=== PATIENT | female | born 1945 | race Caucasian/White ===

== ENCOUNTER 2018-07-01 15:09 | Inpatient (IN) | payer MEDICARE ==
[~2018-07-01] VITALS: Ht 157.4 cm; Wt 53.1 kg
--- NOTE | ~2018-07-01 | WRIGHTHP ---
[place], [place] PATIENT HISTORY AND PHYSICAL EXAM NAME: PENELOPE RUIZ UNIT #: [id number] ROOM: 316 DOCTOR: RISHABH BIANCHI MD BIRTHDATE: [birth year] DOS: 07/01/2018 CHIEF COMPLAINT: "You all need to go fuck yourself." HISTORY OF PRESENT ILLNESS: This is a 72-year-old white female who was admitted here from [facility] in [place]. The patient has been increasingly out of control there. She has been both verbally and physically aggressive with staff and other residents. She has been cursing at the patients, her and staff. She has been uncontrollably pacing the hallways, very determined and has been exit seeking. Attempts to redirect have only led to her becoming physically aggressive. She is putting both herself and others at substantial risk of harm and is admitted now to the [facility] to rule out organic factors and attempt to stabilize on medication while engaging in individual and fagan milieu activity. PAST MEDICAL HISTORY: Remarkable for dementia, GERD, CVA, hyperlipidemia, hypertension, irritable bowel and mitral valve prolapse. SOCIAL HISTORY: She is a former drinker of alcohol. She does not smoke cigarettes nor does she use illicit drugs. ALLERGIES: Listed to doxycycline. STRENGTHS: Ambulatory, good verbal skills. WEAKNESSES: Cognitive decline, poor coping skills. MENTAL STATUS EXAMINATION: She is alert and oriented to self. It was very difficult to get her to engage. She continued to pace the halls and continued to yell out obscenities even as I attempted to approach her to ask her if she needed anything and to offer for my assistance. She yelled profanities at me and angrily walked away. DIAGNOSES: Intermittent explosive disorder, Alzheimer's dementia. PLAN: I will go ahead and increase her Depakote sprinkles to 500 mg t.i.d. in an effort to get this mood lability and impulsivity under control. For now, I will start her on Ativan 1 mg t.i.d. and Seroquel 25 mg t.i.d. in an effort to stop the mood lability and prevent harm to self and others. We will monitor for risk, benefit, engage in individual and fagan milieu activity, returning to the least restrictive environment when psychiatrically stable. [place], [place] PATIENT HISTORY AND PHYSICAL EXAM NAME: PENELOPE RUIZ UNIT #: [id number] ROOM: 316 DOCTOR: RISHABH BIANCHI MD BIRTHDATE: [birth year] RISHABH BIANCHI MD CM:HISPHYS:PATIENT HISTORY AND PHYSICAL EXAMINATION [id number] RISHABH BIANCHI MD 07/02/18 1002 interface
--- NOTE | ~2018-07-01 | PR ---
[place], [place] PROGRESS NOTE NAME: PENELOPE RUIZ UNIT #: [id number] ROOM: 316 DOCTOR: RISHABH BIANCHI MD BIRTHDATE: [birth year] DOS: 07/03/2018 CHIEF COMPLAINT: The patient was somnolent. SUMMARY OF THE VISIT: The patient was attempted to be interviewed as she was sitting sleeping in a chair in the dining area. As I approached and attempted to wake her, she did not budge. Nurses report that she had a horrible morning yesterday, which I witnessed as she ran up and down the halls angrily yelling obscenities. Nurses did report that after they gave her PRNs and she had a small nap, she awoke a whole different woman. She was bright, pleasant and engaging. Later in the day some of the medication did catch up to her and she was somnolent. MENTAL STATUS: Limited due to her level of sedation. PLAN: Given the positive improvement, but the side effects of sedation, I will go ahead and begin the pull back on some of the medicine. I will lower Ativan from 1 mg 3 times a day to 0.5 mg 3 times a day. I will lower Seroquel from 25 mg 3 times a day to 12.5 mg 3 times a day. Her vitamin D level is low at 18.1. Hospitalists have already responded to this. We will engage in individual and fagan milieu activity, returning to the least restrictive environment when psychiatrically stable. RISHABH BIANCHI MD CM:PNTRANS [phone] RISHABH BIANCHI MD 07/03/18 1527 interface
--- NOTE | ~2018-07-01 | PN ---
[place], [place] PROGRESS NOTE NAME: PENELOPE RUIZ UNIT #: [id number] ROOM: 311 DOCTOR: RISHABH BIANCHI MD BIRTHDATE: [birth year] DATE: 07/14/18 ADDENDUM: Resident note reviewed. Agree with observations, recommendations, and overall treatment plan. RISHABH BIANCIH MD CM:PNTRANS [phone] RISHABH BIANHCI MD 08/10/18 1433 JOSE STEEL MIS.LLR
--- NOTE | ~2018-07-01 | PR ---
[place], [place] PROGRESS NOTE NAME: PENELOPE RUIZ UNIT #: [id number] ROOM: 311 DOCTOR: RISHABH BIANCHI MD BIRTHDATE: [birth year] DOS: 07/04/2018 INTERVAL NOTE CHIEF COMPLAINT: "Oh there that is, look at that food. It looks good." SUMMARY OF THE VISIT: The patient was interviewed as she was eating her food in the dining area. She was doing it on her own, initially aides tried to help her, but she did not want help and was able to do it on her own. She was bright and pleasant upon approach. There were no profanities and overall her level of agitation seems to have declined from admission. On admission, she was very motor agitated and paced wildly back and forth, yelling obscenities nonstop. Now, she is seated, quietly eating, smiling and verbalizing positive statements. MENTAL STATUS: She is alert and oriented to person, possibly place, although it is doubtful, not to time. Mood seems to be trending towards euthymia. Affect seems more appropriate. There is no camila, hypomania or psychosis. Memory is very poor. PLAN: I will increase Exelon patch from 4.6 to 9.5 mg a day, check a valproic acid level in the a.m. Maintain her other psychotropics as they are and considers titrating downward if need be. Engage in individual and fagan milieu activity, returning to the least restrictive environment when psychiatrically stable. RISHAHB BIANCHI MD CM:PNTRANS [phone] RISHABH BIANCHI MD 08/10/18 1437 interface
--- NOTE | ~2018-07-01 | PR ---
[place], [place] PROGRESS NOTE NAME: PENELOPE RUIZ UNIT #: [id number] ROOM: 311 DOCTOR: RISHABH BIANCHI MD BIRTHDATE: [birth year] DOS: 07/09/2018 INTERVAL NOTE CHIEF COMPLAINT: "Morning." SUMMARY OF THE VISIT: The patient was interviewed as she was curled up on a Mickie chair almost in a position. She pulled the blanket around her tighter as I approached. She voiced no complaint. She tended to be perseverative and echolalic even. Nurses report that she continues to grind her teeth, however, almost worse than before and she does seem to be still unsteady on her feet. Her yelling out and aggressive behaviors, however, have dissipated. MENTAL STATUS: The patient is limited in her conversation. There was no agitation or aggression. There was no mood lability noted. Short-term memory is very problematic. PLAN: I will continue to lower her Depakote Sprinkles bringing the dose down to 250 mg b.i.d. I will order viscous lidocaine to see if this helps with her dental pain. We will engage her in individual and fagan milieu activity, returning to the least restrictive environment when psychiatrically stable. RISHABH BIANCHI MD CM:PNTRANS 0933 RISHABH BIANCHI MD 07/09/18 0950 interface
--- NOTE | ~2018-07-01 | PN ---
[place], [place] PROGRESS NOTE NAME: PENELOPE RUIZ UNIT #: [id number] ROOM: 311 DOCTOR: RISHABH BIANCHI MD BIRTHDATE: [birth year] DATE: 07/05/18 ADDENDUM: Resident note reviewed. Agree with observations, recommendations, and overall treatment plan. RISHABH BIANCHI MD CM:PNTRANS 1416 1435 RISHABH BIANCHI MD 08/10/18 1435 JOSE STEEL MIS.LLR
--- NOTE | ~2018-07-01 | PR ---
[place], [place] PROGRESS NOTE NAME: PENELOPE RUIZ UNIT #: [id number] ROOM: 316 DOCTOR: RISHABH BIANCHI MD BIRTHDATE: [birth year] DOS: 07/06/2018 INTERVAL NOTE CHIEF COMPLAINT: "Oh that is what they say." SUMMARY OF THE VISIT: The patient was interviewed as she was continuing to pace up and down the hallway. She did not even stop to talk to me, but did engage readily in conversation with me as I walked next to her. She voiced no complaint. She does seem to be at times improving and there is less profanities and she is more verbally redirectable. She still is exit seeking, however, and is a constant source of an elopement risk. MENTAL STATUS: She is alert and oriented with time gaps. Mood does seem to be trending towards euthymia. Affect is more appropriate. There is no camila, hypomania or psychosis. Short-term memory is very problematic. PLAN: Her valproic acid level is therapeutic at 91.7, so I will maintain its current dose. I will resume at a slightly higher dose of Seroquel, bringing it from 12.5 mg 3 times a day to 25 mg 3 times a day in an effort to impact positively on her behavior and decrease her impulsivity. We will monitor and support, engage in individual and fagan milieu activity, returning to the least restrictive environment when psychiatrically stable. RISHABH BIANCHI MD CM:PNTRANS [id number] RISHABH BIANCHI MD 07/06/18 1141 interface
--- NOTE | ~2018-07-01 | PR ---
[place], [place] PROGRESS NOTE NAME: PENELOPE RUIZ UNIT #: [id number] ROOM: 311 DOCTOR: RISHABH BIANCHI MD BIRTHDATE: [birth year] DOS: 07/11/2018 SUMMARY OF THE VISIT: The patient was interviewed as she was sitting almost like in her chair. As I approached, she did say good morning. Otherwise, she was fairly quiet. She was more alert, however, than yesterday and more interactive. Her responses tended to be short and simple, vague at times. There was no agitation or aggression, no mood lability noted. Short-term memory remains very problematic. PLAN: I will continue her current psychotropic regimen, continue to engage in individual and fagan milieu activity, returning to the least restrictive environment when psychiatrically stable. RISHABH BIANCHI MD CM:PNTRANS [phone] RISHABH BIANCHI MD 07/11/18 1346 interface
--- NOTE | ~2018-07-01 | PN ---
[place], [place] PROGRESS NOTE NAME: PENELOPE RUIZ UNIT #: [id number] ROOM: 311 DOCTOR: RISHABH BIANCHI MD BIRTHDATE: [birth year] DATE: 07/12/18 ADDENDUM: Resident note reviewed. Agree with observations, recommendations, and overall treatment plan. RISHABH BIANCHI MD CM:PNTRANS 1416 1434 RISHABH BIANCHI MD 08/10/18 1434 JOSE STEEL MIS.LLR
--- NOTE | ~2018-07-01 | PN ---
[place], [place] PROGRESS NOTE NAME: PENELOPE RUIZ UNIT #: [id number] ROOM: 311 DOCTOR: RISHABH BIANCHI MD BIRTHDATE: [birth year] DATE: 07/07/18 ADDENDUM: Resident note reviewed. Agree with observations, recommendations, and overall treatment plan. RISHABH BIANCHI MD CM:PNTRANS 1416 1434 RISHABH BIANCHI MD 08/10/18 1435 JOSE STEEL MIS.LLR
--- NOTE | ~2018-07-01 | PN ---
[place], [place] PROGRESS NOTE NAME: EPNELOPE RUIZ UNIT #: [id number] ROOM: 311 DOCTOR: RISHABH BIANCHI MD BIRTHDATE: [birth year] DATE: 07/13/18 ADDENDUM: Resident note reviewed. Agree with observations, recommendations, and overall treatment plan. RISHABH BIANCHI MD CM:PNTRANS 1416 1433 RISHABH BIANCHI MD 08/10/18 1434 JOSE STEEL MIS.LLR
--- NOTE | ~2018-07-01 | DS ---
[place], [place] DISCHARGE SUMMARY NAME: PENELOPE RUIZ UNIT #: [id number] ROOM: 311 DOCTOR: RISHABH BIANCHI MD BIRTHDATE: [birth year] DOS: 07/15/2018 CHIEF COMPLAINT: "You all need to go f-ck yourself. HISTORY OF PRESENT ILLNESS: This is a 72-year-old white female who [facility] a [facility] [place], [place]. The patient has been increasingly out of control there. She has been both verbally and physically aggressive towards staff and other residents. She has been pacing uncontrollably in the hallways and has been exit seeking. Additionally, she has been yelling out obscenities such as go f-ck yourself repeatedly, disturbing the entire fagan milieu. Attempts to redirect her have only led to her becoming increasingly more physically aggressive. She is putting both herself and other residents at substantial risk of harm. She is now admitted to the [facility] to rule out organic factors to attempt to stabilize on medication and to engage in individual and fagan milieu activity determining the least restrictive environment to which she could be discharged. SUMMARY OF HOSPITAL COURSE: The patient was admitted to the unit where she was initially started on Depakote Sprinkles 500 mg 3 times daily in an effort to control her mood lability. This, however, was not initially beneficial. She was started on Ativan 1 mg t.i.d. and Seroquel 25 mg t.i.d., which initially did seem to impact positively on her behaviors; however, after several days, this did cause her to have excessive somnolence and the doses then had to be held and discontinued. During this period of time, she was stabilized on Exelon patch 4.6 mg a day, was rapidly titrated upward to 13.3 mg a day without any side effects noted. Namenda was also maintained at 10 mg b.i.d. As this had an opportunity to impact positively on her behavior, the need for any other intervention seemed lessened. She did have some periods during the morning when she became a little agitated, so Ativan 0.5 mg b.i.d. early was given with excellent results without the residual sedation or somnolence. With this combination of medications, the patient improved dramatically. She was able to sit and attend groups. She no longer was pacing wildly in the parra. She no longer was yelling out obscenities. She did respond to verbal prompting. As mentioned earlier, there was no sedation or somnolence, no other symptoms or side effects were noted. She had improved sufficiently [facility] to [facility]. MENTAL STATUS AT DISCHARGE: She is alert and oriented to self only. Responses are short, simple and vague. She was pleasant, however, and not agitated. There was no hypomania or camila. There were no overt auditory or visual hallucinations, delusions or paranoia. Short-term memory continued to be poor. DISCHARGE DIAGNOSES: Intermittent explosive disorder and Alzheimer's dementia. DISPOSITION: The [facility]. PLAN: All of her prescriptions have been printed and will be sent with her. At the time of discharge, she was psychiatrically and medically stable. I will be the treating psychiatrist of record upon [facility] to [facility]. [place], [place] DISCHARGE SUMMARY NAME: PENELOPE RUIZ UNIT #: [id number] ROOM: 311 DOCTOR: RISHABH BIANCHI MD BIRTHDATE: [birth year] RISHABH BIANCHI MD CM:YOU [phone] RISHABH BIANCHI MD 07/15/18 1313 interface
--- NOTE | ~2018-07-01 | PR ---
[place], [place] PROGRESS NOTE NAME: PENELOPE RUIZ UNIT #: [id number] ROOM: 311 DOCTOR: RISHABH BIANCHI MD BIRTHDATE: [birth year] DOS: 07/08/2018 CHIEF COMPLAINT: "There that is." SUMMARY OF THE VISIT: The patient was interviewed as she was sitting in a Mickie chair wrapped in a blanket. She did attempt to get up on multiple occasions. Staff later did help her up and instead of walking, the patient rocked back and forth, Weeble wobbling the entire time, seemingly unable to take a step. Nurses report she still has episodes of agitation and became extremely agitated yesterday, wildly pounding on windows and doors. MENTAL STATUS: She is alert and oriented to self only, perhaps select others as staff reports that she does know her . She is not oriented to place or time. Mood still is labile. Affect is still inappropriate. There is a great deal of mood lability. I do not see the presence of psychosis. Short term memory is poor and she processes extremely poor. PLAN: In an effort to attempt to simplify her regimen, she had come to the hospital having been on Seroquel without much benefit. I will discontinue the Seroquel now and lower the Depakote sprinkles to 500 mg b.i.d. Her valproic acid level was on the high side, so I do believe I have wiggle room to lower this to see if we can cause her to be more steady on her feet. I will renew her p.r.n. Ativan should she require intervention. Engage in individual and fagan milieu activity, returning to the least restrictive environment when psychiatrically stable. RISHABH BIANCHI MD CM:PNTRANS [phone] RISHABH BIANCHI MD 07/08/18 1041 interface
--- NOTE | ~2018-07-01 | PR ---
[place], [place] PROGRESS NOTE NAME: PENELOPE RUIZ UNIT #: [id number] ROOM: 311 DOCTOR: RISHABH BIANCHI MD BIRTHDATE: [birth year] DOS: 07/10/2018 CHIEF COMPLAINT: "Morning." SUMMARY OF THE VISIT: The patient was interviewed as she was curled up in a Mickie chair almost in a position. Once again, she did awake with some prompting and did say good morning, but then nodded back off. Nurses report that she has not been as active as she had been previously. On the positive side, she is not yelling obscenities, nor is she exit seeking. On the negative side, she has become somewhat less conversant. MENTAL STATUS: She is alert and oriented to self, unclear place, certainly not time. Mood does seem to be more stable and less labile. There are no auditory or visual hallucinations. No delusions, no paranoia. Short term memory continues to be problematic. PLAN: I will discontinue her Depakote now in order to see if we can decrease some of this residual somnolence. I will renew her straight Ativan; however, and consider adjusting this further. We will check a BMP and a CBC now just to rule out any organic factors and engage in individual and fagan milieu activity, returning then to the least restrictive environment when stable. RISHABH BIANCHI MD CM:PNTRANS [phone] RISHABH BIANCHI MD 07/10/18 1010 interface
[2018-07-01] MEDS ORDERED: NAMZARIC 28 MG1 EACH PO (16:29)
[2018-07-01] MEDS ORDERED: XANAX0.25 MG PO (16:30)
[2018-07-01] MEDS ORDERED: SEROQUEL25 MG PO (16:32)
--- NOTE | 2018-07-01 16:56 | NUR ---
PENELOPE RUIZ a 72 year old F admitted via from the ADMITTING as a voluntary admission BY MARIE. Arrived on unit at 1656. ALLERGIES: DOXYCYCLINE. Vital signs are: 97.2-82-18 123/60. The client signed the following forms with stated understanding: Authorization For The Release of Medical Information, Clothing List, Consent to Voluntary Admission and Hospitalization, Consent and Release Forms/Receipt of Rights, Acknowledgement of Advance Directive Information, Behavioral Health Consent Form, and Informed Consent of Medications. Admitted under the services of Dr. ARIAS DOWDRISHABH. A search was conducted and hazardous articles were removed. Client was oriented to the unit. JOANNE STEVENS
[2018-07-01 16:58] VITALS: BP 123/60
[2018-07-01 17:24] VITALS: BP 123/60
--- NOTE | 2018-07-01 17:29 | NUR ---
DR. NGUYEN NOTIFIED OF NEW ADMISSION. DIAGNOSIS LIST AND MEDICATIONS FOR REVIEW. PATIENT WILL BE UNDER THE CARE OF DR. NGUYEN.
--- NOTE | 2018-07-01 18:45 | NUR ---
PSA completed with /POA.
[2018-07-01 20:00] VITALS: BP 155/70
--- NOTE | 2018-07-01 20:05 | NUR ---
URINE SPECIMEN COLLECTED VIA RANDOM CATCH. URINE CLOUDY YELLOW. URINE OUTPUT OF 50ML. PATIENT INCONTINENT OF BLADDER PRIOR TO OBTAINING SAMPLE. NO COMPLAINTS OF DYSURIA AT THIS TIME
[2018-07-01 20:43] LABS: BILIRUBIN NEGATIVE (NEGATIVE); BLOOD 1+ (NEGATIVE); CLARITY CLOUDY (CLEAR); COLOR YELLOW (YELLOW); GLUCOSE NEGATIVE (NEGATIVE); KETONE NEGATIVE (NEGATIVE); LEUKO ESTERASE 3+ (NEGATIVE); NITRITE NEGATIVE (NEGATIVE); UROBILINOGEN 0.2 E.U./dl (0.2-1.0)
[2018-07-01 20:58] LABS: WBC TNTC wbc/hpf (0-5)
--- NOTE | 2018-07-01 21:55 | NUR ---
PATIENT WITH INCREASED AGITATION AND ANXIETY. PATIENT MEDICATED WITH ATIVAN 1MG PO. MEDICATION WITH EFFECTIVE RESULTS.
--- NOTE | 2018-07-01 23:10 | NUR ---
24 HR chart check completed.
--- NOTE | 2018-07-02 02:33 | NUR ---
DR VALENTIN ON THE UNIT. URINALYSIS RESULTS REVIEWED AND NO NEW ORDERS RECEIVED AT THIS TIME
--- NOTE | 2018-07-02 03:05 | NUR ---
DR VALENTIN ON UNIT TO SEE PATIENT
--- NOTE | 2018-07-02 05:20 | NUR ---
P-ANXIETY, VULGAR LANGUAGE, PACING. PATIENT ALERT WITH CONFUSION. PATIENT WITH SHORT TERM AND GROUP HOME MEMORY DEFICITS. PATIENT WITH NO HALLUCINATIONS OR DELUSIONS. PATIENT WITH NO SUICIDAL OR HOMICIDAL IDEATIONS. PATIENT YELLING OUT AT STAFF, USING VULGAR LANGUAGE, AND DISRUPTIVE AT TIMES. PATIENT AMBULATING AND PACING THE HALLWAY. I-REDIRECTION WITH 1:1 THERAPEUTIC INTERVENTIONS AND PRESENT REALITY. EDUCATE AND ENCOURAGE MEDICATION COMPLIANCE. R-REDIRECTION ATTEMPTS WITH EFFECTIVE RESULTS AND WITH MUCH ENCOURAGEMENT. PATIENT REDIRECTED AWAY FROM DOOR THROUGHOUT SHIFT WHILE AWAKE. PATIENT TOOK HS MEDICATIONS WITH MUCH ENCOURAGEMENT. PATIENT MOOD IS LABILE AND IRRITABLE. PATIENT AMBULATING ON UNIT WITH STEADY GAIT AND WITH NO ASSISTIVE DEVICE R-CONTINUE TO ENCOURAGE MEDICATION COMPLIANCE, CONTINUE TO PRESENT REALITY, ENCOURAGE GROUP THERAPY WHILE AWAKE
--- NOTE | 2018-07-02 05:42 | NUR ---
PATIENT SLEPT >7 HOURS THROUGHOUT SHIFT UNINTERRUPTED. Q 15 MINUTE CHECKS MAINTAINED
[2018-07-02 07:33] LABS: BASO % 0.5 % (0.0-1.0); EOS # 0.2 10*3/uL (0.0-0.4); EOS % 2.9 % (1.0-4.0); HEMATOCRIT 43.3 % (37.0-47.0); HEMOGLOBIN 13.7 g/dl (12.0-16.0); LYMPH # 1.4 10*3/uL (1.3-4.4); LYMPH % 20.8 % (27.0-41.0); MEAN CELL VOLUME 90.2 fl (81.0-99.0); MEAN CORPUSCULAR HGB 28.5 pg (27.0-31.0); MEAN CORPUSCULAR HGB CONC 31.6 g/dl (33.0-37.0); MEAN PLATELET VOLUME 10.2 fl (9.6-12.3); MONO # 0.5 10*3/uL (0.1-1.0); MONO % 6.9 % (3.0-9.0); NEUT # 4.6 10*3/uL (2.3-7.9); NEUT % 68.6 % (47.0-73.0); PLATELET COUNT AUTOMATED 243 10*3/uL (130-400); RED CELL DISTRI WIDTH 13.8 % (0-14.5); WHITE BLOOD COUNT 6.6 10*3/uL (4.8-10.8)
--- NOTE | 2018-07-02 07:45 | NUR ---
PT AWAKE, ALERT, PACING HALLWAYS AT A FAST PACE, YELLING VULGARITIES AT PEERS AND STAFF SUCH "FUCK YOU, YOU CRAZY BITCH". THIS NURSE ATTEMPTED TO REDIRECT PT TO THIS SIDE OF THE RED LINE. PT GRITTED TEETH AT THIS NURSE AND SCREAMED AT THE TIME OF HER LUNGS "FUCK IT!!" PT THEN AMBULATED BACK DOWN TO THE OTHER END OF THE HALLWAY MUTTERING VULGARITIES SHE WENT.
[2018-07-02 07:53] VITALS: BP 137/70
--- NOTE | 2018-07-02 07:58 | NUR ---
PT PACING HALLWAY AT THIS TIME. TELLING STAFF AND OTHER PTS "FUCK YOU, YOU CRAZY FUCKING BITCH." UNABLE TO DE-ESCALATE. DISTRACTION TECHNIQUES AND REDIRECTION INEFFECTIVE. PT GIVEN SPACE TO CALM SELF. WILL CONTINUE TO MONITOR. ELOPEMENT/WANDER PRECAUTIONS MAINTAINED.
[2018-07-02 07:59] LABS: ALBUMIN 3.4 gm/dl (3.1-4.5); ALKALINE PHOSPHATASE 80 U/L (45-117); BUN 14 mg/dl (7-24); CHLORIDE 105 mmol/L (98-107); CHOLESTEROL 230 mg/dL (<200); CREATININE 0.74 mg/dL (0.55-1.02); HDL CHOLESTEROL 80 mg/dl (40-60); LDL CHOLESTEROL 137 mg/dL (9-159); POTASSIUM 4.3 mmol/L (3.5-5.1); SGOT/AST 9 IU/L (3-35); SGPT/ALT 20 U/L (12-78); SODIUM 141 mmol/L (136-145); TOTAL PROTEIN 7.1 gm/dL (6.4-8.2); TRIGLYCERIDES 65 mg/dl (<150); VLDL CHOLESTEROL 13 mg/dL (6-40)
--- NOTE | 2018-07-02 08:01 | NUR ---
PT WALKED BY NURSES STATION YELLING "THIS IS BULLSHIT, FUCKING BULLSHIT." STAFF TO CONTINUE TO MONITOR MOOD AND BAHVIOR.
--- NOTE | 2018-07-02 08:08 | NUR ---
ATTEMPTED TO ADMINISTER MORNING DOSE OF DEPAKOTE WELL PRN ATIVAN 1MG PO FOR INCREASED ANXIETY AND AGITATION PT CONTINUES TO PACE THE HALLWAY, ANGRILY YELLING, SCREAMING AND CURSING AT STAFF AND PEERS. PT REFUSED TO TAKE MEDICATION PO DESPITE MULTIPLE ATTEMPTS BY THIS RN AND SECOND RN. PT STATES "I'M NOT DOING THAT YOU GODDAMN STUPID BITCH". ATTEMPTED TO DIRECT PT INTO QUIET ROOM WITH LIGHTS DIMMED FOR DE-STIMULATION. PROVIDED WITH BREAKFAST TRAY AND CHOCOLATE MILK PER PT'S PREFERENCES. PT REFUSED TO EAT OR DRINK AGAIN STATES "I'M NOT DOING THAT YOU STUPID BITCH". ON UNIT AND AWARE OF BEHAVIORS.
--- NOTE | 2018-07-02 08:20 | NUR ---
BEHAVIORS CONTINUE, PT CONTINUES TO CURSE AT STAFF AND PEERS. PT THREW CHOCOLATE MILK IN QUIET ROOM. ALL ATTEMPTS TO REDIRECT PT HAVE BEEN INEFFECTIVE. THIS NURSE ATTEMPTED TO ENCOURAGE PT TO SIT IN QUIET ROOM AND EAT BREAKFAST, PT BECAME ANGRY AND YELLED "I'M NOT DOING THAT YOU STUPID PIECE OF BIRD SHIT". PT THEN BEGUN STRIKING OUT AT STAFF. PT WAS GIVEN PRN ATIVAN 1MG IM AT THIS TIME AND PLACED IN GERICHAIR FOR SAFETY PT CONTINUES TO PACE HALLWAYS AT AN EXTREMELY FAST RATE. WILL MONITOR FOR MEDICATION EFFECTIVENESS.
[2018-07-02 09:02] LABS: VITAMIN D, 25-HYDROXY 18.1 ng/mL (30-100)
--- NOTE | 2018-07-02 10:40 | NUR ---
ATIVAN HAS BEEN EFFECTIVE FOR CALMING PT. PT SLEPT FOR APPROXIMATELY 20 MINUTES, PT IS NOW AWARE AND ALERT, LOOKING OUT THE WINDOW IN QUIET ROOM. RESPS EASY AND EVEN ON ROOM AIR. Q15 MIN MONITORING CONTINUES.
--- NOTE | 2018-07-02 11:21 | NUR ---
RECIEVED PHONE CALL FROM PT'S HARPREET WHO CORRECTLY IDENTIFIED PASSWORD "[phone]". UPDATE PROVIDED. STATES HE WILL VISIT THIS EVENING.
--- NOTE | 2018-07-02 11:37 | NUR ---
CALL RECIEVED FROM PT'S SON SARA WHO CORRECTLY IDENTIFIED PASSWORD "[phone]". UPDATE PROVIDED. STATES HE WILL COME IN TO VISIT AT 1230.
--- NOTE | 2018-07-02 12:20 | NUR ---
AM GROUP/EXERCISE/ART/COPING PT UNABLE TO ATTEND GROUP DUE TO INNAPRORIATE BEHAVIORS (CURSING AT STAFF). PT WILL BE ENCOURAGED TO ATTEND AND PARTICIPATE IN GROUP WHEN MORE APPROPRIATE.
--- NOTE | 2018-07-02 14:45 | NUR ---
P- LABILE MOOD AND AFFECT. PT RANGES FROM ANGRY/IRRITABLE TO PLEASANT AND SMILING. MEDICATION NONCOMPLIANT. CONFUSION. PACING/WANDERING. I- ORIENTATION, MOOD AND BEHAVIOR ASSESSED. REORIENTATION, REDIRECTION AND 1:1 PROVIDED NEEDED. ASSESSED FOR SI/HI, INTENT OR PLAN. ASSESSED PT FOR S/S HALLUCINATIONS, PARANOIA AND DELUSIONS. MEDICATIONS ADMINISTERED PER PHYSICIAN'S ORDERS. ENCOURAGED PT TO ATTEND AND PARTICIPATE IN [place] [facility] GROUPS AND ACTIVITIES. ASSISTANCE WITH ADL CARE PROVIDED NEEDED. R- PT IS ALERT AND ORIENTED TO SELF ONLY, GROSSLY CONFUSED IN ALL OTHER AREAS. ST/LT MEMORY DEFICITS NOTED. RESPS EASY AND EVEN ON ROOM AIR. PT DENIES SI/HI, INTENT OR PLAN. PT DENIES HALLUCINATIONS, NO RESPONSE TO INTERNAL STIMULI NOTED. NO PARANOIA/DELUSIONS NOTED. PT REFUSED MORNING MEDICATIONS, TOOK 1PM ROUTINE ORAL MEDICATIONS WITHOUT DIFFICULTY. FOLLOWING ADMINISTRATION OF PRN IM ATIVAN THIS AM PT'S MOOD HAS DRASTICALLY IMPROVED, SINCE LUNCH PT HAS BEEN PLEASANT, SMILING AND COOPERATIVE. HAD A PLEASANT VISIT WITH SON FOR AFTERNOON VISITATION. NO FURTHER VULGAR LANGUAGE OR THREATS THIS AFTERNOON. PT RESTING QUIETLY IN SOFA CHAIR AT THIS TIME WITH EYES CLOSED. P- PLAN TO CONTINUE CURRENT TREATMENT, CONTINUE TO MONITOR MOOD AND BEHAVIORS, PROVIDE APPROPRIATE REORIENTATION, REDIRECTION AND 1:1 PROVIDED NEEDED. CONTINUE TO ENCOURAGE MEDICATION COMPLIANCE WELL GROUP ATTENDANCE AND PARTICIPATION.
--- NOTE | 2018-07-02 15:05 | NUR ---
ON UNIT TO SEE PT AT THIS TIME, UPDATE GIVEN.
--- NOTE | 2018-07-02 15:08 | NUR ---
ON UNIT TO SEE PT AT THIS TIME.
--- NOTE | 2018-07-02 17:37 | NUR ---
PT'S AND DAUGHTER ON UNIT FOR VISITATION, FULL UPDATE GIVEN. ALL QUESTIONS ANSWERED.
[2018-07-02 19:09] VITALS: BP 119/54
--- NOTE | 2018-07-03 04:58 | NUR ---
ALERT TO PERSON WITH CONFUSION NOTED. MEMORY DEFICITS NTOED. PACING HALLWAY. NO HALLUCIANTIONS OR DELUSIONS NOTED. PT ATTEMPTED TO ENTER OTHER PT ROOMS AND WAS REDIRECTED. PT YELLING AT STAFF "OH SHUT UP YOU GOD DAMNED ASSHOLE. YOU MOTHER FUCKING PUSSY" WHEN BEING REDIRECTED. MEDICATION COMPLIANT WITHOUT DIFFICULTY. UNABLE TO PROVIDE MEDICATION EDUCATION. Q15 MINUTE SAFETY CHECKS MAINTAINED. PT SLEPT APPROXIMATELY 7 HOURS THIS SHIFT. SEE [facility] FLOWSHEET FOR SPECIFIC MONITORING.
--- NOTE | 2018-07-03 05:30 | NUR ---
24 HR chart check completed.
[2018-07-03 07:47] VITALS: BP 126/69
--- NOTE | 2018-07-03 07:49 | NUR ---
ON UNIT TO SEE PT AT THIS TIME.
--- NOTE | 2018-07-03 08:17 | NUR ---
ON UNIT TO SEE PT AT THIS TIME, UPDATE GIVEN.
--- NOTE | 2018-07-03 09:18 | NUR ---
PT REFUSED ALL PO MEDS THIS DESPITE MULTIPLE ATTEMPTS BY THIS RN AND 2ND RN. PT STATES "I'M NOT DOING THAT" AND HAS BEGUN TO GET AGITATED STAFF ATTEMPTS TO ENCOURAGE PT TO TAKE MEDICATIONS. PT PACING HALLWAY AT THIS TIME.
--- NOTE | 2018-07-03 16:41 | NUR ---
PM GROUP/BIRDHOUSES/LEISURE SKILLS PT SLEEPING FIRST HALF HOUR OF GROUP, BUT THEN WOKE AND BEGAN PACING HALLS. PT WOULD COME IN GROUP EVERY SO OFTEN TO SAY HI AND WOULD LEAVE TO WALK HALLS AGAIN. PT NOTICEABLY GRINDING TEETH OFTEN. PT ALSO CONFUSED STATING THIS OUT OF NOWHERE LIKE "ARE THEY HERE YET, THERE ARE 57 OF THEM" PT WILL CONTINUE TO BE ENCOURAGED TO ATTEND AND PARTICIPATE IN FUTURE GROUP SESSIONS TO BEST OF PT ABILITY.
--- NOTE | 2018-07-03 18:05 | NUR ---
P- LABILE MOOD AND AFFECT. PT RANGES FROM ANGRY/IRRITABLE TO PLEASANT AND SMILING. MEDICATION NONCOMPLIANT. CONFUSION. PACING/WANDERING. I- ORIENTATION, MOOD AND BEHAVIOR ASSESSED. REORIENTATION, REDIRECTION AND 1:1 PROVIDED NEEDED. ASSESSED FOR SI/HI, INTENT OR PLAN. ASSESSED PT FOR S/S HALLUCINATIONS, PARANOIA AND DELUSIONS. MEDICATIONS ADMINISTERED PER PHYSICIAN'S ORDERS. ENCOURAGED PT TO ATTEND AND PARTICIPATE IN [place] GROUPS AND ACTIVITIES. ASSISTANCE WITH ADL CARE AND INCONTINENCE CARE PROVIDED NEEDED. R- PT IS ALERT AND ORIENTED TO SELF ONLY, GROSSLY CONFUSED IN ALL OTHER AREAS. ST/LT MEMORY DEFICITS NOTED. RESPS EASY AND EVEN ON ROOM AIR. PT DENIES SI/HI, INTENT OR PLAN. PT DENIES HALLUCINATIONS, NO RESPONSE TO INTERNAL STIMULI NOTED. NO PARANOIA/DELUSIONS NOTED. PT AM MEDICATIONS DESPITE MULTIPLE ATTEMPTS BY THIS NURSE AND 2ND RN. PT TOOK AFTERNOON DOSES OF SEROQUEL AND ATIVAN WITH IMPROVEMENT IN OVERALL MOOD NOTED. P- PLAN TO CONTINUE CURRENT TREATMENT, CONTINUE TO MONITOR MOOD AND BEHAVIORS, PROVIDE APPROPRIATE REORIENTATION, REDIRECTION AND 1:1 PROVIDED NEEDED. CONTINUE TO ENCOURAGE MEDICATION COMPLIANCE WELL GROUP ATTENDANCE AND PARTICIPATION.
--- NOTE | 2018-07-03 18:15 | NUR ---
SHIFT CHART CHECK COMPLETED.
[2018-07-03 19:17] VITALS: BP 144/82
--- NOTE | 2018-07-03 23:29 | NUR ---
OFfered pt support and encouragement including with eating and pt was redirectable with not walking close to the exit while engaging in pacing.
--- NOTE | 2018-07-04 01:48 | NUR ---
24 HR chart check completed.
--- NOTE | 2018-07-04 05:27 | NUR ---
ALERT TO PERSON WITH CONFUSION NOTED. MEMORY DEFICITS NOTED. PACING HALLWAY. NO HALLUCIANTIONS OR DELUSIONS NOTED. MEDICATION COMPLIANT WITHOUT DIFFICULTY. UNABLE TO PROVIDE MEDICATION EDUCATION. Q15 MINUTE SAFETY CHECKS MAINTAINED. PT SLEPT APPROXIMATELY 7 HOURS THIS SHIFT. SEE [facility] FLOWSHEET FOR SPECIFIC MONITORING.
--- NOTE | 2018-07-04 07:45 | NUR ---
DR. ZAMARRIPA ON FLOOR TO ASSESS PATIENT.
--- NOTE | 2018-07-04 07:47 | NUR ---
PHYSICAL THERAPY Nursing screen received. PT orders also received. Thank you. Brenda Frey,PT
--- NOTE | 2018-07-04 07:57 | NUR ---
Nurses screen received along with occupational therapy referral, Thank you, Oxana Nuñez OTR/L
[2018-07-04 08:11] VITALS: BP 114/56
--- NOTE | 2018-07-04 08:30 | NUR ---
Treatment Plan meeting with Dr. Carmichael RN, AT, SW and Marine Fuel Dock Attendant. Plan for discharge next week. Pt. current resident at [facility]. Will reach out to [facility] today to discuss discharge Planning.
--- NOTE | 2018-07-04 10:52 | NUR ---
PHYSICAL THERAPY PAtient is 100 % (I) with functional mobility, no PT needs. PAtient is continually pacing halls with no balance difficulties. D/c PT after evaluation. Thank you for this referral. Brenda Frey,PT
--- NOTE | 2018-07-04 11:06 | NUR ---
Occupational Therapy evaluation attempted which resulted in screen. Patient independently ambulatory in hallways with brisk walk. Patient appears independent with ADLs. Will D/C OT orders. Thank you, Oxana padilla OTR/L
--- NOTE | 2018-07-04 11:23 | NUR ---
Shift chart check completed.
--- NOTE | 2018-07-04 11:58 | NUR ---
AM GROUP/PARACHUTE/WORDSEARCH PT DID NOT ATTEND BUT PACED UP AND DOWN HALLS AND WOULD ENTIRE ACTIVITY ROOM EVERY ONCE IN A WHILE AND WALK RIGHT BACK OUT. PT WAS ENCOURAGED TO ATTEND AND PARTICIPATE BUT DID NOT WANT TO. PT WILL CONTINUE TO BE ENCOURAGED TO ATTEND AND PARTICIPATE IN FUTURE GROUP SESSIONS.
--- NOTE | 2018-07-04 12:31 | NUR ---
PATIENT REFUSING MEDICATIONS. WAS ABLE TO GET TO EAT A COUPLE BITES CRUSHED IN APPLESAUCE. TRIED DIFFERENT METHODS TO GET PATIENT TO GET MEDICATIONS IN. REFUSING TO TAKE MEDICATIONS.
--- NOTE | 2018-07-04 12:43 | NUR ---
P: PATIENT WAS PLEASANTLY CONFUSED THIS MORNING, ALERT TO PERSON ONLY. PACING UP AND DOWN THE LAFLEUR ALL MORNING. REFUSING TO SIT DOWN TO EAT AND REFUSING TO ATTEND GROUP. AROUND THIS TIME PATIENT BEGAN TO GET INCREASINGLY AGITATED AND AGGRESSIVE. CONTINUES TO PACE. BECAME AGITATED ONCE ANOTHER PATIENT WAS YELLING OUT. PATIENT YELLING AT STAFF "SHUT THE FUCK UP YOU COCKSUCKER. GET HER TO SHUT THE HELL UP. GET THE HELL OUT OF MY FUCKING WAY. DONT YOU DARE MAKE ME MAD." PATIENT AGGRESSIVE TOWARDS STAFF AND GESTURING WITH A FIST. I: 1:1 WITH PATIENT WITH EMOTIONAL SUPPORT PROVIDED. ATTEMPTED TO GET PATIENT TO MOVE INTO A QUIETER ENVIORNMENT WITH LOWER STIMULI. TRIED TO EXPLAIN TO PATIENT THAT EVERYONE IS HERE FOR A DIFFERENT REASON AND THAT PATIENT CAN NOT HELP IT. OFFERED PATIENT HER MEDICATIONS THAT SHE HAS REFUSED ALL MORNING. TRIED TO GET PATIENT TO EAT HER LUNCH, OFFERED MANY DIFFERENT DIVERSIONAL ACTIVITIES. REORIENT PATIENT WHEN NECESSARY. R: PATIENT REFUSED TO EAT, TAKE HER MEDICATIOINS, DO ANY DIVERSIONA ACTIVITIES, AND REFUSED TO MOVE INTO A QUIETER ENVIORMENT OR LOWER STIMULI ROOM. PATIENT CONTINUED TO CURSE AND YELL AT STAFF, GESTURING FISTS AND CONTINUED TO PACE UP AND DOWN THE HALLS. PATIENT CAME TO VISIT PATIENT, ONCE HE CAME ONTO THE UNIT SHE CALMED DOWN IMMEDIATELY. HER AND THE PATIENT WENT INTO A QUIET ROOM WITH HER LUNCH. PATIENT IS NOW SITTING DOWN WITH HER , TOOK HER MEDICATIONS, AND IS EATING HER LUNCH. PATIENTS MOOD CHANGED TO MORE PLEASANTLY CONFUSED. SMILING AND LAUGHING WITH HER . P: CONTINUE TO ENCOURAGE PATIENT TO BE COMPLIANT WITH HER MEDICATIONS AND EDUCATE ON EACH MEDICATION AND THE IMPORTANCE OF TAKING HER MEDS. ENCOURAGE TO PARTICIPATE IN GROUP FOR EMOTIONAL SUPPORT. ENCOURAGE TO BE EATING HER MEALS AND DRINKING PLEANTY OF FLUIDS. TRY TO ENGAGE PATIENT IN CONVERSATION WITH STAFF AND PEERS. OFFER DIVERSIONAL ACTIVITIES AND LOW STIMULI ENVIRONMENTS. REORIENT PATIENT WHEN NECESSARY. OFFER PATIENT CALL HER WHEN SHE BECOMES INCREASINGLY AGITATED AND ANXIOUS. Q15 MINUTE CHECKS MAINTAINED FOR SAFETY. ELOPEMENT PRECAUTIONS IN PLACE.
--- NOTE | 2018-07-04 15:08 | NUR ---
Spoke to Cynthia at [facility] regarding inpatient mental health authorization. Pending auth # [id number]. Awaiting return call from Cynthia as all dementia patients have to be passed through the supervisor [employer].
--- NOTE | 2018-07-04 15:55 | NUR ---
PM GROUP/LEISURE SKILLS PT CHOSE NOT TO ATTEND, BUT DID PACE HALLS ENTIRE GROUP. PT WILL CONTINUE TO BE ENCOURAGED TO ATTEND AND PARTICIPATE TO BEST OF ABILITY IN FUTURE GROUP SESSIONS.
[2018-07-04 19:57] VITALS: BP 122/75
--- NOTE | 2018-07-04 23:23 | NUR ---
24 HR chart check completed.
--- NOTE | 2018-07-05 00:48 | NUR ---
PATIENT ALERT WITH CONFUSION. PATIENT WITH SHORT TERM AND SKILLED NURSING MEMORY DEFICITS. PATIENT WITH NO RESPIRATORY DISTRESS. PATIENT MOOD IS LABILE AND IRRITABLE AT TIMES. PATIENT AMBULATORY ON UNIT WITH STEADY GAIT. PATIENT WITH COMPLIANT WITH MEDICATIONS WITH MAXIMUM ENCOURAGEMENT. PATIENT WITH VULGAR LANGUAGE AT TIMES. REDIRECTION WITH PATIENT EFFECTIVE FOR SHORT PERIODS OF TIME DUE TO COGNITION. PATIENT PACING HALLWAY AT HS AND WITH ELOPEMENT AND WANDERING PRECAUTIONS. PATIENT WITH NO HALLUCINATIONS OR DELUSIONS. PATIENT WITH NO SUICIDAL OR HOMICIDAL IDEATIONS. SEE [facility] FLOW SHEET FOR SPECIFIC MONITORING
--- NOTE | 2018-07-05 06:05 | NUR ---
SLEEP NOTE PT SLEPT >7 HOURS
--- NOTE | 2018-07-05 07:40 | NUR ---
DR. ZAMARRIPA ON FLOOR TO ASSESS PATIENT.
[2018-07-05 07:49] VITALS: BP 120/69
--- NOTE | 2018-07-05 08:15 | NUR ---
Treatment Plan meeting with Dr. Carmichael, RN, AT, SW and Band Aid Machine Operator. Plan for discharge Next week. Pt. LTC at [facility] and will return at discharge.
--- NOTE | 2018-07-05 11:51 | NUR ---
AM GROUP/EXERCISE AND STRESS REDUCTION PT DID NOT ATTEND MORNING GROUP THERAPY. PT WAS PACING LAFLEUR CONTIUALLY AND COULD NOT BE ENCOURAGED TO ATTEND.
--- NOTE | 2018-07-05 12:31 | NUR ---
P: PATIENT ALERT AND ONLY ORIENTED TO PERSON ONLY. PACING THE LAFLEUR. LABILE MOOD, PATIENT BECOMES REAL EUTHYMIC THEN BECOMES INCREASINGLY AGITATED REPEATEDLY. WHEN IRRITATED PT IS CURSING AT STAFF. REFUSING TO SIT DOWN FOR MEALS OR GROUP. REFUSED BREAKFAST AND WAS ABLE TO GET PATIENT TO EAT A HALF OF A GRILLED CHEESE SANDWICH WHILE PACING FOR LUNCH. NONCOMPLIANT WITH MEDICATIONS, MUCH ENCOURAGEMENT AND ATTEMPTS WERE NEEDED TO GET PATIENT TO TAKE MEDICATIONS. REFUSING TO ATTEND GROUP FOR SOCIALIZATION AND EMOTIONAL SUPPORT. ELOPEMENT RISK, ATTEMPTING TO OPEN DOORS. I: REORIENT PATIENT WHEN CONFUSION IS NOTED. ENCOURAGE PATIENT TO SIT IN DINING ROOM WITH PEERS FOR MEALS, GROUP, AND TO RELAX FEET FROM PACING. OFFER PATIENT DIVERSIONAL TECHNIQUES AND LOW STIMULI ENVIRONMENT. WHEN PATIENT IS IRRITABLE, REDIRECTION AND ADDRESSING THE BEHAVIOR IS INEFFECTIVE. 1:1 INTERACTION FOR EMOTIONAL SUPPORT AND SOCIALIZATION. GIVE MEDICATIONS ON TIME PRESCRIBED AND EDUCATION. R: PATIENT CONTINUES TO PACE THE LAFLEUR. ATTEMPTING TO OPEN DOOR AND EXIT SEEK. REFUSING MEALS, GROUP, SIT, DIVERSIONAL ACTIVITIES, LOW STIMULI ENVIRONMENTS. WHEN IRRITABLE AND TRY TO REDIRECT AND ADDRESS BEHAVIOR, PATIENT CURSES AND YELLS AT STAFF. NO AGGRESSION NOTED. PATIENT DOES NOT SIT DOWN WITH 1:1 INTERACTION, STAFF WALKS WITH PATIENT AND ENGAGES IN CONVERSATION WITH PATIENT. REFUSING TO TAKE MEDICATIONS, MUCH ENCOURAGEMENT AND DIFFERENT ATTEMPTS NEEDED. P: CONTINUE TO ENCOURAGE PATIENT TO BE MEDICATION COMPLIANT WITH EDUCATION PROVIDED. ENCOURAGE TO ATTEND GROUP FOR SOCIALIZATION AND EMOTIONAL SUPPORT. 1:1 INTERACTION WHEN NECESSARY. ADDRESS INAPPROPRIATE BEHAVIORS. Q15 MINUTE CHECKS MAINTAINED FOR SAFETY. ELOPEMENT PRECAUTIONS IN PLACE.
--- NOTE | 2018-07-05 15:24 | NUR ---
Shift chart check completed.
--- NOTE | 2018-07-05 15:50 | NUR ---
PM GROUP/LEISURE ACTIVITIES PT DID NOT ATTEND AFTERNOON GROUP THERAPY. PT CONTINUALLY PACES HALLS. PT COULD NOT BE ENCOURAGED TO ATTEND
[2018-07-05 20:00] VITALS: BP 135/55
--- NOTE | 2018-07-06 03:33 | NUR ---
24 HR chart check completed.
--- NOTE | 2018-07-06 06:19 | NUR ---
PATIENT SLEPT >7 HOURS THROUGHOUT SHIFT UNINTERRUPTED. Q 15 MINUTE CHECKS MAINTAINED
[2018-07-06 07:35] VITALS: BP 128/67
--- NOTE | 2018-07-06 08:15 | NUR ---
Treatment Plan meeting with Dr. Carmichael, RN, AT, SW and Sewing Machine Repairer. Plan for discharge Next week. Pt. is LTC at [facility] and will return at discharge.
--- NOTE | 2018-07-06 09:48 | NUR ---
DR. AGUILAR ON UNIT TO ASSESS PATIENT.
--- NOTE | 2018-07-06 11:27 | NUR ---
Clinical Updates faxed to [facility] attn: Nadia.
--- NOTE | 2018-07-06 11:57 | NUR ---
AM GROUP/EXERCISE AND ART PT DID NOT ATTEND GROUP THERAPY. PT CONSTANTLY PACES THE HALLS AND CANNOT BE ENCOURAGED TO ATTEND.
--- NOTE | 2018-07-06 15:02 | NUR ---
PATIENT IS ALERT TO PERSON WITH CONFUSION. LONG/SHORT TERM MEMORY DEFICITS. NO RESPONSE TO INTERNAL STIMULI. NO VOICED STATEMENT OF HI/SI OR PAIN. MEDICAITON COMPLAINT WIHT MUCH ENCOURAGEMENT. MOOD IS SLIGHTLY IRRITABLE, PACING IN HALLWAYS CONTINUOUSLY. CURSING AT TIMES AT STAFF. REDIRECTED NEEDED. AMBULATORY WITH STEADY GAIT. 2-3 PERSON ASSIST WITH ACTIVITIES OF DIALY LIVING, INCONTINENT OF BOWEL AND BLADDER. SET UP FOR MEALS. FINGER FOODS PROVIDED. PATIENT HANDED ONE SELECTION OF FOOD AT A TIME. PATIENT EATS FOODS SHE WALKS IN HALLWAY. CONTINUE TO MONITOR FOR AGGRESSION; CONTINUE TO PROVIDE ONE ON ONE AND REDIRECTION NEEDED.
--- NOTE | 2018-07-06 15:43 | NUR ---
PM GROUP PT DID NOT ATTEND AFTERNOON GROUP THERAPY. PT CONTINUES TO PACE RALPH.
--- NOTE | 2018-07-06 16:13 | NUR ---
Shift chart check completed.
[2018-07-06 20:00] VITALS: BP 125/60
--- NOTE | 2018-07-06 21:54 | NUR ---
24 HR chart check completed.
--- NOTE | 2018-07-07 06:06 | NUR ---
PT SLEPT APPROXIMATELY 7 HOURS THIS SHIFT. NO HALLUCINATIONS OR DELUSIONS NOTED. NO SI/HI NOTED. ALERT TO PERSON WITH CONFUSION NOTED. RESTLESS. FALL PREVENTION MAINTAINED. Q15 MINUTE SAFETY CHECKS MAINTAINED. [facility] FLOWSHEET FOR SPECIFIC MONITORING.
[2018-07-07 07:19] VITALS: BP 132/72
--- NOTE | 2018-07-07 08:00 | NUR ---
Treatment Plan meeting with Dr. Carmichael, RN, AT, SW and Tool Worker. Plan for discharge next week. Pt. LTC at [facility] and will return to facility at discharge.
--- NOTE | 2018-07-07 10:48 | NUR ---
DR. AGUILAR ON UNIT TO ASSESS PATIENT.
--- NOTE | 2018-07-07 11:05 | NUR ---
P: AGGRESSION- YELLING OUT, CURSING AND ATTEMPTING TO STRIKE OUT AT NURSE; DISTRUPTIVE TO DINING ROOM. I: ONE ON ONE, REDIRECTIONS, OFFERED FOOD AND DRINK; PATIENT ASSISTED OUT OF DINING ROOM TO HALLWAY FOR CHANGE OF ENVIRONMENT. R: EFFECTIVE P: CONTINUE TO MONITOR AGGRESSION; PROVIDE ONE ON ONE AND REDIRECTION NEEDED. PATIENT IS ALERT AND ORIENTED TO PERSON AND HANDS ON CARE ONLY WITH CONFUSION; MOOD IS IRRITABLE, CURSING AT STAFF. CURRENTLY UP IN SUNDAY CHAIR RESTING QUIETLY, EYES CLOSED. RESPIRATIONS ARE EASY, NON LABORED ON ROOM AIR. NO DISTRESS OBSERVED. NO RESPONSE TO INTERNAL STIMULI, NO STATEMENT OF HI/SI OR PAIN. REFUSED MEDICATIONS WITH SEVERAL RESPONSES. Q 15 MINUTE SAFETY CHECKS. 2 PERSON ASSIST WITH ACTIVITIES OF DAILY LIVING, INCONTINENT OF BOWEL AND BLADDER. SET UP FOR MEALS, FINGER FOODS ONLY WITH ENCORUAGEMENT TO EAT AND DRINK. CONTINUE TO MONITOR FOR AGGRESSSION, PROVIDE ONE ON ONE AND REDIRECTION NEEDED.
--- NOTE | 2018-07-07 11:51 | NUR ---
AM GROUP/EXERCISE AND PARACHUTE PT DID NOT ATTEND MORNING GROUP THERAPY. PT WAS IN BED SLEEPING AND REFUSED TO ATTEND.
--- NOTE | 2018-07-07 15:43 | NUR ---
PM GROUP PT WAS PRESENT FOR GROUP SLEEPING RECLINED IN A SUNDAY CHAIR. PT AWOKE AND TRIED TO GET UP AND WAS CONFUSED AND AGITATED. PT BEGAN LASHING OUT AT STAFF AND USING FOUL LANGUAGE. PT HAD TO BE REMOVED FROM THE GROUP SETTING BY MENTAL HEALTH WORKER A DISTRACTION.
[2018-07-07 19:57] VITALS: BP 129/68
--- NOTE | 2018-07-07 21:32 | NUR ---
24 HR chart check completed.
--- NOTE | 2018-07-07 22:37 | NUR ---
P-AGITATION, CONFUSION I-ACCESS ORIENTATION & REORIENT, PROVIDE SIMPLE DIRECTIVES, ADMINISTER HS MEDS & MONITOR SLEEP R-ALERT TO PERSON ONLY. CONFUSED & IRRITABLE & YELLING OUT, REPETITIVE STATEMENTS, "THATS WHAT IT IS". UNRECEPTIVE TO REORIENTATION. RESTED IN SUNDAY CHAIR IN THE DINING ROOM. GRINDING TEETH CONTINOUSLY, NEEDED MUCH PROMPTING TO TAKE MEDICATIONS CRUSHED & MIXED IN PUDDING. 2 ASSISTS WITH PHYSICAL NEEDS. INCONTINENT OF URINE. P-CONTINUE TO MONITOR ORIENTATION, CONFUSION & SLEEP
--- NOTE | 2018-07-08 05:38 | NUR ---
PT HAS SLEPT PAST 2330.
--- NOTE | 2018-07-08 07:53 | NUR ---
PT AWAKE, ALERT, EATING BREAKFAST IN DINING ROOM WITH PEERS.
--- NOTE | 2018-07-08 08:00 | NUR ---
ON UNIT TO SEE PT AT THIS TIME, UPDATE GIVEN.
--- NOTE | 2018-07-08 08:00 | NUR ---
Treatment Plan meeting with Dr. Amol RN and Machine Bookkeeper. Plan for discharge next week. Pt. is LTC at [facility] and will return at Discharge.
[2018-07-08 08:44] VITALS: BP 146/70
--- NOTE | 2018-07-08 10:00 | NUR ---
Spoke with Macie at [facility]. Notified of plans to discharge patient Wednesday or Wednesday. Clinical Updates faxed to [facility] Attn: Macie.
--- NOTE | 2018-07-08 10:00 | NUR ---
Spoke with Nadia at [facility]. Advised of Plans to discharge next week. Clinical Updates faxed to [facility] Attn: Nadia.
--- NOTE | 2018-07-08 10:10 | NUR ---
, AND ON UNIT TO SEE PT AT THIS TIME.
--- NOTE | 2018-07-08 14:30 | NUR ---
P- CONFUSION, ALERT TO NAME ONLY, ST/LT MEMORY GAPS, MOOD ANGRY/IRRITABLE AT TIMES. REPETITIVE SPEECH, PT STATES "THAT'S WHAT IT IS. THAT'S WHAT THEY DO" REPEATEDLY. I- ORIENTATION, MOOD AND BEHAVIOR ASSESSED. ASSESSED PT FOR SI/HI, INTENT OR PLAN. ASSESSED PT FOR S/S HALLUCINATIONS, PARANOIA AND/OR DELUSIONS. MEDICATIONS ADMINISTERED PER PHYSICIAN'S ORDERS. ASSISTANCE WITH ADL CARE PROVIDED NEEDED. ENCOURAGED PT TO ATTEND AND PARTICIPATE IN [place] GROUPS AND ACTIVITIES. R- PT IS ALERT AND ORIENTED TO SELF ONLY, ANSWERS TO NAME. CONFUSED IN ALL OTHER AREAS. ST/LT MEMORY IMPAIRMENTS NOTED. RESPS EASY AND EVEN ON ROOM AIR. MOOD IS ANGRY/IRRITABLE AT TIMES UPON REDIRECTION FROM STAFF. PT DENIES SI/HI, INTENT OR PLAN. NO RESPONSE TO INTERNAL STIMULI NOTED. NO PARANOIA OR DELUSIONS NOTED. PT HAS MADE NO ELOPEMENT ATTEPTS THIS SHIFT. SPEECH IS REPETITVE AND IRRELEVANT TO QUESTIONS ASKED. PT REPEATEDLY STATES "THAT'S WHAT IT IS. THAT'S WHAT THEY DO". MEDICATION COMPLIANT THIS AM. ASSISTANCE WITH ADL CARE PROVIDED NEEDED. ASSISTANCE WITH AMBULATION PROVIDED D/T UNSTEADY GAIT. FALLING STAR PROGRAM MAINTAINED. PO INTAKE ENCOURAGED. P- PLAN TO CONTINUE CURRENT TREATMENT; CONTINUE TO MONITOR MOOD AND BEHAVIORS, PROVIDE REORIENTATION, REDIRECTION AND 1:1 NEEDED. CONTINUE TO ENCOURAGE MEDICATION COMPLIANCE WELL GROUP ATTENDANCE AND PARTICIPATION APPROPRIATE.
[2018-07-08 20:00] VITALS: BP 140/70
--- NOTE | 2018-07-08 21:31 | NUR ---
24 HR chart check completed.
--- NOTE | 2018-07-08 21:52 | NUR ---
P-IRRITABILITY, CONFUSION I-ACCESS ORIENTATION & REORIENT, PROVIDE SIMPLE DIRECTIVES, ASSIST WITH PHYSICAL NEEDS, ADMINSITER HS MEDICATIONS, MONITOR SLEEP R-MOOD IS CONFUSED. ALERT TO PERSON ONLY, MILD IRRITABILITY, COMPLAINT TAKING HS MEDICATIONS CRUSHED & MIXED IN APPLESAUCE. RESTED IN A SUNDAY CHAIR, 1 ASSIST WITH PHYSICAL NEEDS. RESTED QUIETLY IN THE DINING ROOM WHILE SITTING IN A SUNDAY CHAIR. P-CONTINUE TO MONITOR ORIENTATION, CONFUSION & SLEEP, ASSIST WITH PHYSICAL NEEDS & PROVIDE EMOTIONAL SUPPORT
--- NOTE | 2018-07-09 06:09 | NUR ---
PT HAS SLEPT PAST 2199
--- NOTE | 2018-07-09 08:00 | NUR ---
ON UNIT TO SEE PT AT THIS TIME.
[2018-07-09 08:30] VITALS: BP 142/69
--- NOTE | 2018-07-09 11:49 | NUR ---
AM GROUP/EXERCISES/BINGO PT UNABLE TO ATTEND DUE TO SLEEPING IN RECLINER. PT DID NOT WAKE DURING GROUP, BUT WILL CONTINUE TO BE ENCOURAGED TO ATTEND AND PARTICIPATE WHEN ABLE.
--- NOTE | 2018-07-09 16:12 | NUR ---
P- CONFUSION, ALERT TO NAME ONLY, ST/LT MEMORY GAPS. NAPPING INTERMITTENTLY T/O SHIFT. MOOD REMAINS IRRITABLE AT TIMES. I- ORIENTATION, MOOD AND BEHAVIOR ASSESSED. ASSESSED PT FOR SI/HI, INTENT OR PLAN. ASSESSED PT FOR S/S HALLUCINATIONS, PARANOIA AND/OR DELUSIONS. MEDICATIONS ADMINISTERED PER PHYSICIAN'S ORDERS. ASSISTANCE WITH ADL CARE PROVIDED NEEDED. ENCOURAGED PT TO ATTEND AND PARTICIPATE IN [place] GROUPS AND ACTIVITIES. R- PT IS ALERT AND ORIENTED TO SELF ONLY, ANSWERS TO NAME. CONFUSED IN ALL OTHER AREAS. ST/LT MEMORY IMPAIRMENTS NOTED. RESPS EASY AND EVEN ON ROOM AIR. MOOD REMAINS IRRITABLE AT TIMES, THIS NURSE ATTEMPTED TO ENCOURAGE PO INTAKE FOR BREAKFAST AND LUNCH, PT BECAME ANGRY AND STATED "THAT'S JUST TOO BAD!" PT DENIES SI/HI, INTENT OR PLAN. NO RESPONSE TO INTERNAL STIMULI NOTED. NO PARANOIA OR DELUSIONS NOTED. PT HAS MADE NO ELOPEMENT ATTEPTS THIS SHIFT. MEDICATION COMPLIANT THIS AM. PT REFUSED AFTERNOON MEDS. ASSISTANCE WITH ADL CARE PROVIDED NEEDED. FALLING STAR PROGRAM MAINTAINED. PO INTAKE ENCOURAGED. P- PLAN TO CONTINUE CURRENT TREATMENT; CONTINUE TO MONITOR MOOD AND BEHAVIORS, PROVIDE REORIENTATION, REDIRECTION AND 1:1 NEEDED. CONTINUE TO ENCOURAGE MEDICATION COMPLIANCE WELL GROUP ATTENDANCE AND PARTICIPATION APPROPRIATE.
--- NOTE | 2018-07-09 17:30 | NUR ---
PT'S IN FOR VISIT, UPDATE GIVEN. ALL QUESTIONS ANSWERED.
[2018-07-09 20:02] VITALS: BP 144/79
--- NOTE | 2018-07-09 21:01 | NUR ---
24 HR chart check completed.
--- NOTE | 2018-07-09 21:45 | NUR ---
P-CONFUSION I-ACCESS ORIENTATION & REORIENT, PROVIDE SMIPLE DIRECTIVES, ASSIST WITH PHYSICAL NEEDS, ADMINISTER HS MEDICATIONS, MONITOR SLEEP, ENCOURAGE FLUIDS R-PT IS CONFUSED. ALERT TO PERSON ONLY, NO IRRITABILITY, COMPLIANT TAKING HS MEDICATIONS CRUSHED & MIXED IN APPLESAUCE. RESTED IN SUNDAY CHAIR, 2 ASSIST WITH PHYSICAL NEEDS. MUCH PROMPTING TO TAKE FLUIDS & FOODS P-CONTINUE TO MONITOR ORIENTATION, CONFUSION & SLEEP, ASSIST WITH PHYSICAL NEEDS & PROVIDE EMOTIONAL SUPPORT.
--- NOTE | 2018-07-10 05:23 | NUR ---
PT HAS SLEPT PAST 2099.
[2018-07-10 07:38] VITALS: BP 137/79
--- NOTE | 2018-07-10 07:39 | NUR ---
PT RESTING IN GERICHAIR WITH EYES CLOSED, OPENED EYES WHEN NAME CALLED, VERBAL AND PLEASANT, STATES "GOOD MORNING!" AWAITING BREAKFAST AT THIS TIME IN DINING ROOM WITH PEERS.
--- NOTE | 2018-07-10 08:00 | NUR ---
ON UNIT TO SEE PT AT THIS TIME, UPDATE GIVEN.
[2018-07-10 11:24] LABS: BASO % 0.3 % (0.0-1.0); EOS % 0.4 % (1.0-4.0); HEMATOCRIT 48.8 % (37.0-47.0); HEMOGLOBIN 16.1 g/dl (12.0-16.0); LYMPH % 10.3 % (27.0-41.0); MEAN CORPUSCULAR HGB 28.7 pg (27.0-31.0); MEAN PLATELET VOLUME 9.8 fl (9.6-12.3); MONO # 0.6 10*3/uL (0.1-1.0); MONO % 6.5 % (3.0-9.0); PLATELET COUNT AUTOMATED 223 10*3/uL (130-400); RED BLOOD COUNT 5.61 10*6/uL (4.10-5.10); RED CELL DISTRI WIDTH 13.3 % (0-14.5); WHITE BLOOD COUNT 9.8 10*3/uL (4.8-10.8)
--- NOTE | 2018-07-10 11:29 | NUR ---
P- CONFUSION, ALERT TO NAME ONLY, ST/LT MEMORY GAPS. NAPPING INTERMITTENTLY T/O SHIFT, EASILY AROUSABLE VIA VERBAL STIMULI. MOOD APPEARS MORE STABLE TODAY WITH LESS IRRITABILITY NOTED. I- ORIENTATION, MOOD AND BEHAVIOR ASSESSED. ASSESSED PT FOR SI/HI, INTENT OR PLAN. ASSESSED PT FOR S/S HALLUCINATIONS, PARANOIA AND/OR DELUSIONS. MEDICATIONS ADMINISTERED PER PHYSICIAN'S ORDERS. ASSISTANCE WITH ADL CARE PROVIDED NEEDED. ENCOURAGED PT TO ATTEND AND PARTICIPATE IN [place] GROUPS AND ACTIVITIES. R- PT IS ALERT AND ORIENTED TO SELF ONLY, ANSWERS TO NAME. CONFUSED IN ALL OTHER AREAS. ST/LT MEMORY DEFICITS NOTED. RESPS EASY AND EVEN ON ROOM AIR. MOOD APPEARS MORE STABLE, AFFECT MIORE APPROPRIATE. PT LESS IRRITABLE THIS DATE. PT SHOWERED WITHOUT DIFFICULTY THIS MORNING WITH STAFF ASSIST X2. PT DENIES SI/HI, INTENT OR PLAN. NO RESPONSE TO INTERNAL STIMULI NOTED. NO PARANOIA OR DELUSIONS NOTED. MEDICATION COMPLIANT THIS AM WITHOUT DIFFICULTY. FALLING STAR PROGRAM MAINTAINED. THIS NURSE ATTEMPTED TO ASSIST PT WITH EATING BREAKFAST THIS MORNING; HOWEVER, PT WOULD TAKE A BITE AND THEN SPIT IT BACK OUT. THIS OCCURRED SEVERAL TIMES. WILL CONTINUE TO ENCOURAGE PO INTAKE. BOOST SUPPLEMENTS OBTAINED, PT DRANK APPROXIMATELY HALF OF A BOOST SUPPLEMENT THIS AM, WILL CONTINUE TO OFFER BOOST AND FLUIDS THROUGHOUT THE DAY. P- PLAN TO CONTINUE CURRENT TREATMENT; CONTINUE TO MONITOR MOOD AND BEHAVIORS, PROVIDE REORIENTATION, REDIRECTION AND 1:1 NEEDED. CONTINUE TO ENCOURAGE MEDICATION COMPLIANCE WELL GROUP ATTENDANCE AND PARTICIPATION APPROPRIATE.
[2018-07-10 11:54] LABS: BUN 24 mg/dl (7-24); CHLORIDE 101 mmol/L (98-107); CREATININE 0.85 mg/dL (0.55-1.02); POTASSIUM 3.5 mmol/L (3.5-5.1); SODIUM 137 mmol/L (136-145)
--- NOTE | 2018-07-10 12:30 | NUR ---
PT ATE 50% OF LUNCH THIS AFTERNOON AND DRANK 240CC OF BOOST SUPPLEMENT WITH STAFF ASSISTANCE PROVIDED FOR FEEDING.
--- NOTE | 2018-07-10 13:40 | NUR ---
ON UNIT TO SEE PT AT THIS TIME. AWARE OF POOR PO INTAKE AND THAT LABS WERE DONE BY .
--- NOTE | 2018-07-10 14:08 | NUR ---
DAUGTHER IN FOR PLEASANT VISIT, UPDATE GIVEN.
--- NOTE | 2018-07-10 14:51 | NUR ---
SHIFT CHART CHECK COMPLETED.
--- NOTE | 2018-07-10 16:03 | NUR ---
PM GROUP/EXERCISES/MOVIE PT ATTENDED BUT UNABLE TO PARTICIPATE DUE TO SLEEPING IN RECLINER. PT WOKE INTERMITTENTLY AND PLEASANT BUT WOULD GO BACK TO SLEEP. PT WILL CONTINUE TO ATTEND GROUPS AND BE ENCOURAGED TO PARTICIPATE TO BEST OF PT ABILITY.
[2018-07-10 20:00] VITALS: BP 132/72
--- NOTE | 2018-07-10 23:51 | NUR ---
PT CONFUSED WITH ST/LT DEFICITSSTABLE MOOD. NO YELLING OUT OR CURSING. CALM. WITHDRAWN TO SELF. NO HALLUCINATIONS OR DELUSIONS NOTED. NO SI/HI NOTED. MEDICATION COMPLIANT WITH MULITPLE PROMPTS. MEDICATION EDUCATION NOT PROVIDED DUE TO COGNITIVE IMPAIRMENT. Q15 MINUTE SAFETY CHECKS MAINTAINED.SEE [facility] FLOWSHEET FOR SPECIFIC MONITORING.
--- NOTE | 2018-07-11 05:31 | NUR ---
PT SLEPT APPROXIMATELY 7 HOURS THIS SHIFT.
--- NOTE | 2018-07-11 05:32 | NUR ---
24 HR chart check completed.
[2018-07-11 07:25] VITALS: BP 131/68
--- NOTE | 2018-07-11 08:15 | NUR ---
Treatment Plan meeting with Dr. Carmichael, RN, AT and Parole Hearing Officer. Plan for discharge at the end of the week. Patient is LTC at [facility] and will return at discharge.
--- NOTE | 2018-07-11 10:12 | NUR ---
Spoke with Nadia at [facility]. Discussed Plans to discharge at the end of the week. Clinical Updates faxed to [facility] Attn: Nadia.
--- NOTE | 2018-07-11 10:57 | NUR ---
P: PT REFUSED AM PO MEDS, STATING "NO IM NOT TAKING A BITE", PT RESTLESS I: REAPPROACHED, UNABLE TO PROVIDE MED EDUCATION D/T COGNITION, PROVIDE DIVERSION ACTIVITES SUCH MUSIC R: PT CONTINUES TO YELL OUT AT THIS NURSE, "NO I'M NOT TAKING A BITE NO", PT REMAINS RESTLESS AT TIMES P: CONTINUE TO ENOCOURAGE MED COMPLIANCE, MONITOR PT BEHAVIORS ON Q15 MIN SAEFTY CHECKS, PROVIDE EMOTIONAL SUPPORT AND 1:1 FOR PT TO VOICE FEELNGS PT ALERT TO PERSON ONLY. PT UP TO GERICHAIR AT THIS TIME, DUE TO UNSTEADY GAIT AND LACK OF SAFETY AWARENESS. PT INCONTINENT OF BOWEL AND BLADDER, CARE PROVIDED NEEDED.
--- NOTE | 2018-07-11 11:35 | NUR ---
AM GROUP/EXERCISE AND EASTER [place]GGS PT WAS PRESENT FOR MORNING GROUP THERAPY BUT UNABLE TO PARTICIPATE AT THIS TIME DUE TO COGNITIVE IMPAIRMENT. PT EXHIBITED NO AGITATION OR AGGRESSION DURING GROUP.
--- NOTE | 2018-07-11 11:37 | NUR ---
ON UNIT TO ASSESS PT.
--- NOTE | 2018-07-11 15:17 | NUR ---
Spoke to Launn at [facility] for continued review stay. Reviewed clinical. Luann has questions about UTI and UC. Notified hospitalist nurse director. Awaiting return call. No further days have been authorized at this time.
--- NOTE | 2018-07-11 15:39 | NUR ---
PM GROUP/MUSIC AND ART PT WAS PRESENT FOR AFTERNOON GROUP BUT IS UNABLE TO PARTICIPATE DUE TO COGNITIVE IMPAIRMENT
[2018-07-11 20:00] VITALS: BP 132/68
--- NOTE | 2018-07-11 20:42 | NUR ---
EVENING/STORY/AROMATHERAPY PT ATTENDED AND PARTICIPATED TO BEST OF ABILITY. PT REDIRECTED MULTIPLE TIMES AFTER ATTEMPTING TO STAND UP AND LEAVE. PT INTERESTED IN STORY BUT HAD TO BE REDIRECTED BACK TO CONTENT MULTIPLE TIMES WELL. PT WILL CONTINUE TO ATTEND GROUP AND BE ENCOURAGED TO PARTICIPATE TO BEST OF ABILITY.
--- NOTE | 2018-07-11 21:52 | NUR ---
Patient is alert to person only with confusion. ST/LT memory deficits noted at this time. Patient is calm but withdrawn to self. No yelling out or cursing noted at this time. No hallucinations/delusion noted. No SI/HI noted. Medication compliant with a lot of encouragement. Q 15 minuted safety checks continued and maintained. See [facility] flowsheet for further documentation.
--- NOTE | 2018-07-12 00:24 | NUR ---
24 HR chart check completed.
--- NOTE | 2018-07-12 05:38 | NUR ---
Patient slept approx. 7 1/2 hours throughout shift. Q15 minute safety checks continued and maintained.
--- NOTE | 2018-07-12 07:30 | NUR ---
Message left for Luann wahl [employer], regarding UC colony count of 50,000 and asymptomatic no antibiotics were going to be started per Dr. Montenegro. Awaiting response.
--- NOTE | 2018-07-12 07:48 | NUR ---
ON UNIT TO ASSESS PT.
[2018-07-12 07:55] VITALS: BP 140/80
--- NOTE | 2018-07-12 08:30 | NUR ---
Treatment Plan meeting with Dr. Carmichael, RN, AT and Ergonomist. Plan for discharge at the end of the week. Pt. to return to [facility].
--- NOTE | 2018-07-12 11:15 | NUR ---
P: PT REFUSED AM PO MEDS I: REAPPROACH, PROVIDE EMOTIONAL SUPPORT AND 1:1 FOR PT TO VOICE FEELINGS, UNABLE TO PROVIDE MED D/T COGNITION R: PT COMPLIANT WITH AM PO MEDS WITH ENCOURAGEMENT AND REAPPROACHING P: CONTINUE TO ENCOURAGE MED COMPLIANCE, REAPPROACH NEEDED, PROVIDE EMOTIONAL SUPPORT AND 1:1 FOR PT TO VOICE FEELINGS PT ALERT TO PERSON ONLY, SHORT TERM/COMPOSING MACHINE OPERATOR/TENDER MEMORY DEFICITS NOTED. NO HALLUCINATIONS OR DELUSIONS NOTED. NO HOMICIDAL/SUICIDAL THOUGHTS OR BEHAVIORS NOTED. PT UP TO GERICHAIR D/T UNSTEADY GAIT AND LACK OF SAFETY AWARENESS, PT WILL AMBULATE WITH STAND BY STAFF ASSIST. PT INCONTINENT OF BOWEL AND BLADDER, CARE PROVIDED NEEDED.
--- NOTE | 2018-07-12 11:41 | NUR ---
AM GROUP/EXERCISE AND MANICURES PT WAS PRESENT FOR MORNING GROUP SLEEPING RECLINED IN A CHAIR. PT WOULD AWAKEN OCCASIONALLY AND STATE, "THAT'S WHAT THEY DO" AND GO BACK TO SLEEP. PT EXHIBITED NO AGITATION OR AGGRESSION DURING GROUP.
--- NOTE | 2018-07-12 15:39 | NUR ---
PM GROUP/CALIXTO PT WAS PRESENT FOR GROUP BUT WAS SLEEPING IN A CHAIR. PT ATTEMPTED TO GET UP AND MENTAL HEALTH WORKER TOOK PT FOR A WALK. PT RETURNED AND WENT BACK TO SLEEP. PT EXHIBITED NO AGITATION OR AGGRESSION DURING GROUP.
[2018-07-12 20:00] VITALS: BP 136/70
--- NOTE | 2018-07-12 22:04 | NUR ---
P---NONCOMPLIANT WITH MEDICATIONS I--PUT MEDICATIONS IN PEANUT BUTTER WHICH SHE ATE SLOWLY. CLIENT IS NON VERBAL WITH STAFF AND REFUSES TO ANSWER ANY QUESTIONS. LOOKS AT YOU WHEN YOU TALK BUT DOESN'T APPEAR TO UNDERSTAND R--NO VERBAL RESPONCE. TOOK MEDICATIONS SLOWLY I--WILL CONTINUE TO TRY TO GET HER TO TALK. REORIENT AD OFFER OPTIONS FOR HER TO INTERACT WITH. CLIENT ORIENTED TO SELF ONLY. ISOLATIVE WITH PEERS AND STAFF. PT/OT REORDERED HER GAIT IS NOT STEADY. WILL ASSIST CLIENT WITH AMBULATION TILL NEW REPORT RECIEVED
--- NOTE | 2018-07-12 22:31 | NUR ---
LAID CLIENT IN BED. REMAINS RESTLESS BUT WILL MONITOR TO SEE IF SHE CAN FALL ASLEEP
--- NOTE | 2018-07-13 04:28 | NUR ---
24 HR chart check completed.
--- NOTE | 2018-07-13 07:38 | NUR ---
PT AWAKE, ALERT, VERBAL, STAFF ENCOURAGEMENT PROVIDED FOR BREAKFAST. PT REFUSED BREAKFAST DESPITE MULTIPLE ATTEMPTS. PER FAMILY PT DOES NOT REGULARLY EAT BREAKFAST.
--- NOTE | 2018-07-13 08:43 | NUR ---
Treatment Plan meeting with Dr. Carmichael, RN, AT and Historic Sites Supervisor. Plan for discharge Wednesday.
[2018-07-13 08:51] VITALS: BP 110/67
--- NOTE | 2018-07-13 09:11 | NUR ---
ON UNIT TO SEE PT AT THIS TIME, UPDATE GIVEN.
--- NOTE | 2018-07-13 10:42 | NUR ---
AND ON UNIT TO SEE PT AT THIS TIME.
--- NOTE | 2018-07-13 11:10 | NUR ---
IP 3 additional days approved, LCD 07/14, NRD 07/14 per Luann at [facility]. Ref # [id number]
--- NOTE | 2018-07-13 11:17 | NUR ---
Patient not available for Occupational Therapy as she is in group session. Vanda Licea OTR/L
--- NOTE | 2018-07-13 11:20 | NUR ---
PHYSICAL THERAPY PAtient at group at this time. Thank you for this referral. Brenda Frey,PT
--- NOTE | 2018-07-13 11:37 | NUR ---
AM GROUP/EXERCISE AND PARACHUTE PT WAS PRESENT FOR GROUP AND DID NOT PARTICIPATE IN THE ACTIVITIES BUT DID WATCH AND WOULD STATE OCCASIONALLY, "THAT'S WHAT YOU DO" PT EXHIBITED NO AGITATION OR AGGRESSION/VULGAR LANGUAGE DURING GROUP.
--- NOTE | 2018-07-13 12:50 | NUR ---
PHYSICAL THERAPY Patient evaluated on 3, full evaluation to follow. Continue with PT as per plan of care with fall, alarm, unit three , confusion and acute debility precautions. May require SNF, pending progress. PAtient is moderate complexity via chart review, tests and evaluation: 58525. Thank you for this referral. Brenda Frey,PT
--- NOTE | 2018-07-13 13:45 | NUR ---
Occupational Therapy evaluation completed on 3 with full eval to follow. Precautions include fall risk, 3N unit precautions,impaired cognition, decline in ADLs, moderate complexity level 06464 via chart review, testing and evaluation. Recommend OT per POC and LTC upon d/c. Thank you. Vanda Licea OTR/L
--- NOTE | 2018-07-13 15:42 | NUR ---
PM GROUP/MUSIC AND SOCIALIZATION PT WAS PRESENT FOR GROUP AND SAT WITH PEERS LISTENING TO MUSIC AND CONVERSING. PT WAS REPETATIVE AND REPEATED OVER AND OVER, "THAT'S WHAT WE DO" OR "THIS IS CRAZY" AND KEPT TALKING THIS WAY TO PEERS IF CONVERSING. PT EXHIBITED NO AGITATION OR AGGRESSION DURING GROUP, HAD NO OUTBURSTS OR FOUL LANGUAGE.
--- NOTE | 2018-07-13 17:50 | NUR ---
P- CONFUSION, INTERMITTENT NAPPING THIS AM. BEFORE DINNER PT GOT UP OUT OF CHAIR AND BEGAN PACING HALLS PER BASELINE, PLEASANTLY CONFUSED. REPETITIVE SPEECH, PT FREQUENTLY REPEATS "THATS WHAT IT IS" AND "THATS WHAT WE DO". I- ORIENTATION, MOOD AND BEHAVIOR ASSESSED. ASSESSED PT FOR SI/HI, INTENT OR PLAN. ASSESSED PT FOR S/S HALLUCINATIONS, PARANOIA AND/OR DELUSIONS. MEDICATIONS ADMINISTERED PER PHYSICIAN'S ORDERS. ASSISTANCE WITH ADL CARE PROVIDED BY STAFF NEEDED. ENCOURAGED PT TO ATTEND AND PARTICIPATE IN [place] [facility] GROUPS AND ACTIVITIES. R- PT IS ALERT AND ORIENTED TO SELF ONLY, CONFUSED IN ALL OTHER AREAS. RESPS EASY AND EVEN ON ROOM AIR. MOOD IS STABLE THIS SHIFT, AFFECT APPROPRIATE. SPEECH IS SOFT, REPETITIVE, PT FREQUENTLY STATES "THAT'S WHAT IT IS" AND "THAT'S WHAT THEY DO" OVER AND OVER AGAIN. RESPONSES TO QUESTIONS GIVEN BY PT ARE IRRELEVANT TO TOPIC OF CONVERSATION. PT HAS BEEN MEDICATION COMPLIANT THIS DATE WITHOUT DIFFICULTY. MEDS GIVEN WITH CHOCOLATE PUDDING AND CHOCOLATE MILK. PT DENIES SI/HI, INTENT OR PLAN. PT DENIES HALLUCINATIONS, NO RESPONSE TO INTERNAL STIMULI NOTED. NO PARANOIA/DELUSIONS NOTED. PT HAS BEEN CALM, PLEASANT AND COOPERATIVE. PT CONTINUES WITH POOR PO INTAKE, IN FOR EVENING VISITATION, PT IS EATING DINNER WITH ENCOURAGEMENT FROM . P- PLAN TO CONTINUE CURRENT TREATMENT, CONTINUE TO MONITOR MOOD AND BEHAVIORS, PROVIDE APPROPRIATE REORIENTATION, REDIRECTION AND 1:1 NEEDED. CONTINUE TO ENCOURAGE MEDICATION COMPLIANCE, WELL GROUP ATTENDANCE AND PARTICIPATION.
--- NOTE | 2018-07-13 18:37 | NUR ---
SHIFT CHART CHECK COMPLETED.
[2018-07-13 20:00] VITALS: BP 114/68
--- NOTE | 2018-07-13 22:30 | NUR ---
PACING HALLWAY. SAYING YES AND NO TO EVERYTHING. INTERMITTENTY LAUGHTER. TOOK MEDICATIONS CRUSHED IN CHOCHOATE MILK UNALBE TO DO 1:1 DUE TO CLIENTS COGNITION. REFUSES ALL ORAL CARE AT THIS TIME
--- NOTE | 2018-07-14 06:47 | NUR ---
SLEPT FAIR IN CHAIR. REFUSED TO GET I BED
--- NOTE | 2018-07-14 07:45 | NUR ---
OT NOTE Pt was seen this A.M. 1:1 for 15 minute OT session with STRUCTURAL DESIGN ENGINEER present for observation only. Upon arrival pt was sitting upright in the dining room. Pt identified by name and on wristband due to pt's response to most questions being "I don't think so" or "I don't know". Sit to stand completed from chair level with CGA. Functional mobility completed to the bathroom with Jose Alejandro RUIZ and occasional verbal prompts to slow down for enhanced safety. Pt then stood sink side while attempting to brush her teeth. Pt required max verbal prompts for sequencing and following simple commands. Pt would not open her mouth resulting in putting on her lips. Pt then used mouthwash with max verbal prompts for spitting it out. Functional mobility completed back to the dining room with Jose Alejandro RUIZ. Pt was left sitting upright in the dining room under [facility] staff supervision. Throughout entire session pt required constant verbal prompts due to difficulty following simple commnads. Continue with rec D/C plan to LTC. BLANCO Monroe/Pepe
--- NOTE | 2018-07-14 07:50 | NUR ---
PT AWAKE, ALERT, SITTING AT DINING ROOM TABLE FOR BREAKFAST WITH PEERS.
--- NOTE | 2018-07-14 08:00 | NUR ---
Treatment Plan meeting with Dr. Carmichael, RN, AT and Msw. Plan for discharge Wednesday. Pt. to return to [facility].
--- NOTE | 2018-07-14 08:00 | NUR ---
ON UNIT TO SEE PT AT THIS TIME, UPDATE GIVEN.
--- NOTE | 2018-07-14 08:03 | NUR ---
PHYSICAL THERAPY informed consent given, pt identified by name and . pt presented sitting in chair. STS and stand to sit x1 CGA. Walked 60ft x2 CGA standing rests in between. during first trial, pt presented uneven stride length and could not walk in a straight line, pt improved stride length and able to walk straight second trial, pt did not demo arm swing through gait either trial. pt required v/c for motiviation of activities. Ended treatment pt sitting in chair in activity room. SIMEON present throughout treatment. treatment time 18 min. Patient reamined under [facility] staff Supervision. Doroteo Clement, LIME KILN TENDER
[2018-07-14 08:15] VITALS: BP 108/43
--- NOTE | 2018-07-14 09:42 | NUR ---
VERBAL ORDER RECIEVED FROM FOR ONE TIME DOSE OF MIRALAX 17GM X1 NOW FOR CONSTIPATION PT REFUSES MILK OF MAG. WITNESSED BY 2ND ROGELIO
--- NOTE | 2018-07-14 09:53 | NUR ---
ONE TIME DOSE OF MIRALAX 17GM GIVEN AT THIS TIME FOR CONSTIPATION. WILL MONITOR FOR EFFECTIVENESS.
--- NOTE | 2018-07-14 10:55 | NUR ---
AND ON UNIT TO SEE PT AT THIS TIME.
--- NOTE | 2018-07-14 11:51 | NUR ---
AM GROUP/EXERCISE AND ART PT WAS PRESENT FOR MORNING GROUP THERAPY AND WAS WALKING IN AND OUT BUT FINALLY CAME IN AND CURLED UP IN A CHAIR AND WENT TO SLEEP. PT EXHBITED NO AGITATION OR AGGRESSION DURING GROUP. PT IS UNABLE TO PARTICIPATE DUE TO COGNITIVE IMPAIRMENT.
--- NOTE | 2018-07-14 12:00 | NUR ---
MIRALAX HAS BEEN EFFECTIVE.
--- NOTE | 2018-07-14 14:26 | NUR ---
P- PLEASANTLY CONFUSED. POOR ST/LT MEMORY. FREQUENTLY PACING HALLWAY, NO ELOPEMENT ATTEMPTS MADE. PT IS EASILY REDIRECTED. PT CONTINUES WITH REPETITIVE SPEECH, FREQUENTLY STATES "THIS IS CRAZY" AND "THATS HOW IT IS". I- ORIENTATION, MOOD AND BEHAVIOR ASSESSED. ASSESSED PT FOR SI/HI, INTENT OR PLAN. ASSESSED PT FOR S/S HALLUCINATIONS, PARANOIA AND/OR DELUSIONS. MEDICATIONS ADMINISTERED PER PHYSICIAN'S ORDERS. ASSISTANCE WITH ADL CARE PROVIDED NEEDED. ENCOURAGED PT TO ATTEND AND PARTICIPATE IN [place] [facility] GROUPS AND ACTIVITIES. R- PT IS ALERT AND ORIENTED TO PERSON ONLY, PLEASANTLY CONFUSED IN ALL OTHER AREAS. RESPS EASY AND EVEN ON ROOM AIR. MOOD IS STABLE THIS SHIFT, AFFECT IS APPROPRIATE. SPEECH IS SOFT, REPETITIVE, PT FREQUENTLY REPEATS THE SAME STATEMENTS SUCH "THIS IS CRAZY" AND "THATS HOW IT IS". PT DENIES SI/HI, INTENT OR PLAN. PT DENIES HALLUCINATIONS, NO RESPONSE TO INTERNAL STIMULI NOTED. NO PARANOIA OR DELUSIONS NOTED. PT IS CALM, PLEASANT AND COOPERATIVE. MEDICATION COMPLIANT WITHOUT DIFFICULTY. PT PACING HALLWAY A MAJORITY OF THE SHIFT, BUT HAS MADE NO ELOPEMENT ATTEMPTS AND IS EASILY VERBALLY REDIRECTED. NO AGGRESSIVE BEHAVIORS OR VULGAR LANGUAGE NOTED. P- PLAN TO CONTINUE CURRENT TREATMENT, CONTINUE TO MNOITOR MOOD AND BEHAVIORS, PROVIDE APPROPRIATE REORIENTATION, REDIRECTION AND 1:1 NEEDED. CONTINUE TO ENCOURAGE MEDICATION COMPLIANCE WELL GROUP ATTENDANCE AND PARTICIPATION.
--- NOTE | 2018-07-14 15:41 | NUR ---
PM GROUP/ART AND RELAXATION PT DID NOT ATTEND AFTERNOON GROUP THERAPY. PT WAS WALKING THE HALLS. PT IS UNABLE TO PARTICIPATE IN GROUP AT THIS TIME DUE TO COGNITIVE IMPAIRMENT
--- NOTE | 2018-07-14 18:16 | NUR ---
SHIFT CHART CHECK COMPLETED.
[2018-07-14 20:03] VITALS: BP 116/71
--- NOTE | 2018-07-14 21:59 | NUR ---
AMBULATING IN HALLWAY. REFUSES TO SIT DOWN FOR SNACK. TOOK BITE OF APPLESAUCE WITH MEDICATION IN IT AND REPLIED "THIS TASTE LIKE ST, THAT'S HOW IT IS" REFUSES ANY FORM OF ORAL CARE FROM STAFF
--- NOTE | 2018-07-14 22:08 | NUR ---
ALLOWED MILIEU TO BRUSH HER TEETH
--- NOTE | 2018-07-15 00:11 | NUR ---
NEEDS ALL SCRIPTS PRINTED AND SENT WITH CLIENT. PHARMACY CHANGED TO PRINT ALL SCRIPTS
--- NOTE | 2018-07-15 00:14 | NUR ---
24 HR chart check completed.
--- NOTE | 2018-07-15 05:21 | NUR ---
SLEPT WELL PAST 2300PM. DOESN'T IE TO LAY DOWN BUT SLEEPS WELL IN RECLINCER/SUNDAY CHAIR
--- NOTE | 2018-07-15 06:42 | NUR ---
SLEEPING SOUNDLY IN CHAIR. WILL LEAVE ATIVAN FOR DAY SHIFT
--- NOTE | 2018-07-15 07:10 | NUR ---
PHYSICAL THERAPY Patient was sound asleep in activity room Mickie chair upon therapist arrival and unable to arouse for treatemnt. Will continue per POC as able. Doroteo Clement, WHEY DEPARTMENT OPERATOR
--- NOTE | 2018-07-15 07:30 | NUR ---
SPOKE WITH AT [phone] RE: PT DISCAHRGE FOR TODAY AND MEDICAL MEDS NEEDING COMPLETED.
--- NOTE | 2018-07-15 07:40 | NUR ---
OT NOTE Attempted to see pt this A.M. for OT session and upon arrival pt was reclined in the willy chair asleep. Pt would not arouse to verbal stimuli, will check back at a later time/date. BLANCO Monroe/Pepe
[2018-07-15 07:51] VITALS: BP 112/70
--- NOTE | 2018-07-15 08:49 | NUR ---
AND DR. DOWLING ON UNIT TO ASSESS PT, UPDATE PROVIDED.
[2018-07-15] MEDS ORDERED: LORAZEPAM0.5 MG PO (08:52)
[2018-07-15] MEDS ORDERED: Xylocaine Viscous 2% PO (08:52)
[2018-07-15] MEDS ORDERED: MEMANTINE HCL10 MG PO (08:52)
[2018-07-15] MEDS ORDERED: EXELON13.3 MG/21 T (08:52)
--- NOTE | 2018-07-15 10:35 | NUR ---
PT ALERT PERSON ONLY, SHORT TERM/HEEL ROOM SUPERVISOR MEMORY DEFICITS NOTED. PT MED COMPLAINT WITHOUT DIFFICULTY, UNABLE TO PROVIDE MED EDUCATION D/T CONFUSION. NO HALLUCINATIONS OR DELUSIONS NOTED. NO SUICIDAL/HOMICIDAL THOUGHTS OR BEHAVIORS NOTED. PT AMBULATORY THROUGHOUT UNIT, GAIT STEADY. PT PACES THROUGHOUT THE DAY PER NORMAL BEHAVIORS. PT INCONTINENT OF BOWEL AND BLADDER, CARE PROVIDED NEEDED. PLAN IS TO DISCHARGE PT BACK TO [place] [facility] TODAY. PICKUP TIME SCHEDULED FOR 2PM.
--- NOTE | 2018-07-15 11:45 | NUR ---
AM GROUP/LEISURE INTERESTS PT DID NOT ATTEND MORNING GROUP THERAPY. PT WAS WALKING THE LAFLEUR. PT WILL BE DISCHARGED FROM THE UNIT TODAY.
--- NOTE | 2018-07-15 13:57 | NUR ---
NURSE TO NURSE REPORT GIVEN TO EDMOND AT [facility].
--- NOTE | 2018-07-15 13:57 | NUR ---
Discharge Paperwork Faxed to [facility] Attn: Nadia.
--- NOTE | 2018-07-15 13:57 | NUR ---
Discharge Plan remains for today. Pt. to return to [facility]. Psychiatric Follow Up and Primary Care Follow Up at facility 1 x month or PRN.
--- NOTE | 2018-07-15 14:30 | NUR ---
Call Placed to Patient Mika and notified him that Ambulance here to transport patient to [facility].
--- NOTE | 2018-07-15 14:32 | NUR ---
PT DISCAHRGED TO [place] [facility].
--- NOTE | 2018-07-15 15:50 | NUR ---
Called discharge clinical to Luann at [facility]
--- NOTE | 2018-07-18 07:43 | NUR ---
PHYSICAL THERAPY CO-SIGN I approve of the Phyical Therapy notes written above. CIELO BEEBE PT
--- NOTE | 2018-07-18 08:50 | NUR ---
OCCUPATIONAL THERAPY CO-SIGN I approve of the Occupational Therapy notes written above. BRYSON AVILA OTR/Pepe
== END 2018-07-15 14:33 | DRG 883 ==
LOC: 3N 15:09
PROVIDERS: ADMIT Psychiatry & Neurology Psychiatry
DX: F63.81 Intermittent explosive disorder (principal); N39.0 Urinary tract infection, site not specified; F02.81 Dementia in other diseases classified elsewhere, unspecified severity, with behavioral disturbance; G30.9 Alzheimer's disease, unspecified; F41.9 Anxiety disorder, unspecified; R31.9 Hematuria, unspecified; K58.9 Irritable bowel syndrome, unspecified; I10 Essential (primary) hypertension; K21.9 Gastro-esophageal reflux disease without esophagitis; E78.5 Hyperlipidemia, unspecified; I34.1 Nonrheumatic mitral (valve) prolapse; E55.9 Vitamin D deficiency, unspecified; Z88.1 Allergy status to other antibiotic agents; Z79.899 Other long term (current) drug therapy; Z86.73 Personal history of transient ischemic attack (TIA), and cerebral infarction without residual deficits

== ENCOUNTER 2018-12-30 12:53 | Inpatient (IN) | payer MEDICARE, MEDICAID ==
[~2018-12-30] VITALS: Ht 139.7 cm; Wt 49.9 kg
[~2018-12-30 12:53] MED LIST: EXELON13.3 MG/21 T; LORAZEPAM0.5 MG PO; MEMANTINE HCL10 MG PO; NAMZARIC 28 MG1 EACH PO; SEROQUEL25 MG PO; XANAX0.25 MG PO; Xylocaine Viscous 2% PO
[2018-12-30] MEDS ORDERED: NAMENDA-28 PO (14:07)
[2018-12-30] MEDS ORDERED: SENOKOT8.6 MG PO (14:08)
[2018-12-30] MEDS ORDERED: SEROQUEL25 MG PO (14:09)
[2018-12-30] MEDS ORDERED: SEROQUEL50 MG PO (14:09)
[2018-12-30] MEDS ORDERED: NEURONTIN300 MG PO (14:10)
[2018-12-30] MEDS ORDERED: BIOFREEZE118 ML T (14:11)
--- NOTE | 2018-12-30 16:18 | NUR ---
SPOKE WITH JOANNE LEVY ADVISED OF PT ADMISSION AND VOLUNTARY STATUS.
--- NOTE | 2018-12-30 17:53 | NUR ---
PT UNABLE TO PARTICIPATE IN ADMISSION ASSESSMENT, SUICIDE SCREENINGS, DEPRESSION SCREENINGS D/T COGNITION. PT REFUSED TO HOLD STILL TO ALLOW STAFF TO OBTAIN VITALS. PENELOPE RUIZ a 73 year old F admitted via wheel chair from [facility] as a voluntary BY POA admission. Arrived on unit at 1730 . ALLERGIES: DOXYCYCLINE . Vital signs are: UNABLE TO OBTAIN D/T PT REFUSING TO HOLD STILL POA GAVE VERBAL CONSENT FOR THE FOLLOWING FORMS the following forms with stated understanding: Authorization For The Release of Medical Information, Clothing List, Consent to Voluntary Admission and Hospitalization, Consent and Release Forms/Receipt of Rights, Acknowledgement of Advance Directive Information, Behavioral Health Consent Form, and Informed Consent of Medications. Admitted under the services of Dr. ARIAS DOWD,[facility]. A search was conducted and hazardous articles were removed. Client was oriented to the unit. SHANKAR WHITNEY
--- NOTE | 2018-12-30 18:02 | NUR ---
SPOKE WITH DR OSMANY FRANCIS: MEDICAL MANAGEMENT CONSULT NEEDED PER DR. JOHN CONSULT UNDER HIMSELF.
--- NOTE | 2018-12-30 18:40 | NUR ---
PT GRABBING STAFF AND OTHER PATIENTS. INCREASED AGGRESSION NOTED. YELLING OUT. FOLLOWING STAFF AND OTHER PATIENTS THROUGH OUT THE LAFLEUR. UNABLE TO REDIRECT PT. PRN ATIVAN IM GIVEN AT THIS TIME. ATTEMPTING TO STRIKE OUT AND KICK STAFF. WILL MONITOR EFFECTIVENESS OF MEDICATION.
--- NOTE | 2018-12-30 19:00 | NUR ---
DR SANDOVAL ON UNIT TO SEE PATIENT
[2018-12-30 19:33] VITALS: BP 90/70
--- NOTE | 2018-12-31 00:59 | NUR ---
24 HR chart check completed.
--- NOTE | 2018-12-31 03:07 | NUR ---
P-CONFUSION. PATIENT ALERT WITH CONFUSION. PATIENT WITH SHORT TERM AND [facility] MEMORY DEFICITS. PATIENT WITH NO HALLUCINATIONS OR DELUSIONS. PATIENT WITH NO SUICIDAL OR HOMICIDAL IDEATIONS. I-REDIRCTION WITH 1:1 THERAPEUTIC INTERVENTIONS AND PRESENT REALITY. EDUCATE AND ENCOURAGE MEDICATION COMPLIANCE R-PATIENT WITH NO AGGRESSIVE BEHAVIORS AT HS. ATIVAN 1MG IM EFFECTIVE FROM PRIOR SHIFT. PATIENT REFUSED NOURISHMENT AT HS BUT FLUIDS PROVIDED. PATIENT REFUSED HS MEDICATION DUE TO SLEEPING. P-CONTINUE TO ENCOURAGE MEDICATION COMPLIANCE, CONTINUE TO PRESENT REALITY, ENCOURAGE GROUP THERAPY WHILE AWAKE
--- NOTE | 2018-12-31 06:46 | NUR ---
PATIENT SLEPT 8 HOURS THROUGHOUT SHIFT. Q 15 MINUTE CHECKS MAINTAINED
--- NOTE | 2018-12-31 06:50 | NUR ---
PATIENT STRIKING OUT, GRABBING, USING VULGAR LANGUAGE AND YELLING. PATIENT PUSHING ON NURSING STAFF. PATIENT MEDICATED WITH ATIVAN 1MG IM WITH INEFFECTIVE RESULTS AT THIS TIME. WILL CONTINUE TO MONITOR FOR EFFECTIVENESS.
[2018-12-31 07:30] VITALS: BP 110/63
[2018-12-31 07:39] LABS: BASO % 0.3 % (0.0-1.0); EOS # 0.4 10*3/uL (0.0-0.4); HEMATOCRIT 39.3 % (37.0-47.0); HEMOGLOBIN 12.6 g/dl (12.0-16.0); LYMPH # 1.2 10*3/uL (1.3-4.4); LYMPH % 13.3 % (27.0-41.0); MEAN CELL VOLUME 88.9 fl (81.0-99.0); MEAN CORPUSCULAR HGB 28.5 pg (27.0-31.0); MEAN CORPUSCULAR HGB CONC 32.1 g/dl (33.0-37.0); MEAN PLATELET VOLUME 10.1 fl (9.6-12.3); MONO # 0.7 10*3/uL (0.1-1.0); MONO % 7.2 % (3.0-9.0); NEUT # 6.9 10*3/uL (2.3-7.9); NEUT % 74.8 % (47.0-73.0); PLATELET COUNT AUTOMATED 233 10*3/uL (130-400); RED BLOOD COUNT 4.42 10*6/uL (4.10-5.10); RED CELL DISTRI WIDTH 13.9 % (0-14.5); WHITE BLOOD COUNT 9.2 10*3/uL (4.8-10.8)
[2018-12-31 07:55] LABS: ALBUMIN 3.1 gm/dl (3.1-4.5); ALKALINE PHOSPHATASE 74 U/L (45-117); BUN 17 mg/dl (7-24); CHLORIDE 104 mmol/L (98-107); CHOLESTEROL 194 mg/dL (<200); CREATININE 0.77 mg/dL (0.55-1.02); POTASSIUM 4.2 mmol/L (3.5-5.1); SGOT/AST 14 IU/L (3-35); SGPT/ALT 16 U/L (12-78); SODIUM 138 mmol/L (136-145); TOTAL PROTEIN 6.9 gm/dL (6.4-8.2); TRIGLYCERIDES 62 mg/dl (<150); VLDL CHOLESTEROL 12 mg/dL (6-40)
[2018-12-31 08:03] LABS: HDL CHOLESTEROL 66 mg/dl (40-60); LDL CHOLESTEROL 116 mg/dL (9-159)
[2018-12-31 08:29] LABS: VITAMIN D, 25-HYDROXY 14.7 ng/mL (30-100)
--- NOTE | 2018-12-31 08:59 | NUR ---
PT ALERT TO PERSON WITH CONFUSION NOTED. ANXIOUS AND LABILE AT TIMES. NO HALLUCINATIONS OR DELUSIONS NOTED. YELLING OUT nonsensical speech. INTRUSIVE AND DISRUPTIVE. FALL, ASSAULTIVE, and elopement precautions maintained. q15 minute safety checks maintained. incontinence careprovided when needed. this nurse fed patient breakfast. medication compliant without difficulty. unable to provide medication education due to cognitive impairment. see [facility] flowsheet for specific monitoring.
--- NOTE | 2018-12-31 12:34 | NUR ---
psychosocial hx completed this date
--- NOTE | 2018-12-31 12:35 | NUR ---
AM/BINGO/ART PT IN ATTENDANCE BUT SLEPT ENTIRE TIME. PT WILL CONTINUE TO ATTEND AND BE ENCOURAGED TO PARTICIPATE TO BEST OF PT ABILITY.
--- NOTE | 2018-12-31 15:51 | NUR ---
PM/MUSIC/PAINTING PT IN ATTENDANCE BUT RESTING IN RECLINER AT THIS TIME. PT WILL CONITNUE TO ATTEND AND BE ENCOURAGED TO PARTICIPATE.
--- NOTE | 2018-12-31 18:35 | NUR ---
PT REFUSED VITAL SIGNS. ATTEMPTING TO GRAB STAFF AND SWING AT STAFF. YELLING OUT. YELLED AT MILIEU "GET OUT OF HERE. FUCK YOU! FUCK YOU! GET OUT OF HERE!" WILL CONTINUE TO REAPPROACH THE PT AND PROVIDE 1:1 FOR THERAPEUTIC COMMUNICATION.
[2018-12-31 19:22] VITALS: BP 132/63
--- NOTE | 2018-12-31 23:18 | NUR ---
P-YELLING OUT, STRIKING OUT, VULGAR LANGUAGE, KICKING, CONFUSION. PATIENT ALERT WITH CONFUSION. PATIENT WITH SHORT TERM AND OPENSTACK DEVELOPER MEMORY DEFICITS. PATIENT WITH NO HALLUCINATIONS OR DELUSIONS. PATIENT WITH NO SUICIDAL OR HOMICIDAL IDEATIONS. NO RESPIRATORY DISTRESS NOTED I-REDIRCTION WITH 1:1 THERAPEUTIC INTERVENTIONS AND PRESENT REALITY. EDUCATE AND ENCOURAGE MEDICATION COMPLIANCE R-PATIENT WITH AGGRESSIVE BEHAVIORS AT HS. PATIENT MEDICATED WITH ATIVAN 1MG PO WITH INEFFECTIVE RESULTS. PATIENT CONTINUES TO ATTEMPT TO GRAB OTHER PATIENTS, STRIKE OUT, AND KICK NURSING STAFF AND OTHER PATIENTS. PATIENT MEDICATED WITH GEODON 10MG AND GIVEN IN RIGHT DELTOID. MEDICATION WITH EFFECTIVE RESULTS. PATIENT MEDICATION COMPLIANT AND RECEIVED NOURISHMENT AND FLUIDS AT HS. P-CONTINUE TO ENCOURAGE MEDICATION COMPLIANCE, CONTINUE TO PRESENT REALITY, ENCOURAGE GROUP THERAPY WHILE AWAKE
--- NOTE | 2019-01-01 06:22 | NUR ---
24 HR chart check completed. PATIENT SLEPT 2 HOURS OF INTERRUPTED SLEEP THROUGHOUT SHIFT. Q 15 MINUTE CHECKS MAINTAINED
[2019-01-01 08:13] VITALS: BP 112/68
--- NOTE | 2019-01-01 10:09 | NUR ---
PER SUZAN HUTCHISON CNP NEW ORDER OF FANAPT HELD DUE TO ALREADY RECEIVING AM DOSAGE. WILL START FANAPT 4MG THIS EVENING.
--- NOTE | 2019-01-01 11:09 | NUR ---
PT YELLING OUT CONTINUOUSLY. REMOVED FROM DINNINGROOM AFTER BREAKFAST TO DECREASE STIMULATION AND CALM PATIENT. OFFERED PT FOOD AND A DRINK. 1:1 PROVIDED FOR THERAPEUTIC COMMUNICATION. ALL INTERVENTIONS WERE INEFFECTIVE. PT CONTINUES TO YELL OUT "GET OUT OF HERE. FUCK YOU". SPOKE TO SUZAN HUTCHISON CNP AND SUZAN STATED TO ORDER VISTARIL 50 MG Q6PRN FOR INCREASED AGITATION. ORDER PLACED IN THE SYSTEM AND WILL PROVIDE PT THE MEDICATION ONCE AVAILABLE.
--- NOTE | 2019-01-01 12:10 | NUR ---
PRN IS MILDLY EFFECTIVE.
--- NOTE | 2019-01-01 18:07 | NUR ---
COMBATIVE WITH HOC. PT WAS PINCHING, GRABBING STAFF WRISTS, ATTEMPTED TO STRIKE OUT AND KICK. PT WAS INCONTINENT OF BOWEL. ALANNA CARE WAS COMPLETED. PT CONTINUES TO YELL OUT AFTER HOC WAS COMPLETE.
[2019-01-01 20:00] VITALS: BP 128/78
--- NOTE | 2019-01-01 21:30 | NUR ---
UNABLE TO HAVE 1:1 DUE TO COGNITION. CLIENT MEDICATION COMPLIANT WITH ALOT OF ENCOURAGEMENT. CONTINUES TO GRIND TEETH UNABLE TO REDIRECT. KEEPS EYES CLOSED, MOVES SELF AROUND IN CHAIR.
--- NOTE | 2019-01-01 22:23 | NUR ---
UNABLE TO POSSIABLE STRAIT CATH PT GETS VERY VIOLENT WITH ANY HANDS ALL CARE. WILL TRY TO PROVIDE EMOTIONAL SUPPORT
--- NOTE | 2019-01-02 02:36 | NUR ---
24 HR chart check completed.
--- NOTE | 2019-01-02 06:04 | NUR ---
SLEPT UNINTERUPTED PAST 2145PM.
[2019-01-02 07:40] VITALS: BP 122/68
--- NOTE | 2019-01-02 08:30 | NUR ---
Treatment plan meeting with Dr. Carmichael, RN, AT, SW and Biomass Facilitator. Plan for discharge at the end of the week, beginning of next week. Pt. came to [facility] from [place]. Will reach out to facility today to discuss discharge Planning.
--- NOTE | 2019-01-02 11:03 | NUR ---
Occupational therapy orders received and chart reviewed. Patient presents to [facility] for intermittent explosive disorder. Patient is from [facility]. OT screening completed this date, 01/02/19. Patient walking in merry chair with 1 nursing assist. Patient demonstrated decreased cognitive status. Patient grabbing OT and PT arms accompanied by yelling. Patient is not appropriate for OT services. Thank you for the referral. Cheryl Hays, OTR/L
--- NOTE | 2019-01-02 11:08 | NUR ---
PHYSICAL THERAPY Physical therapy evaluation attempted, screen complete. Patient presents from [facility]. Patient aggressive with grabbing/holding on to hands/wrists and unable to follow commands at this time. Patient gait training in merry walker with one assist by nursing staff. No PT needs at this time due to limited carryover with cognitive status. Recommend continued mobility with nursing staff. Discharge PT orders. Thank you. Lauren Alvarez,PT,DPT
--- NOTE | 2019-01-02 11:49 | NUR ---
AM GROUP PT IS UNABLE TO ATTEND OR PARTICIPATE IN GROUP THERAPY AT THIS TIME DUE TO COGNITIVE IMPAIRMENT.
--- NOTE | 2019-01-02 12:11 | NUR ---
Call Placed to [facility]. Left Message for Lauren Estevez Admission Coordinator to discuss discharge Plans. Clinical Updates faxed to facility.
--- NOTE | 2019-01-02 15:43 | NUR ---
PM GROUP PT IS UNABLE TO ATTEND GROUP THERAPY DUE TO COGNITIVE IMPAIRMENT.
--- NOTE | 2019-01-02 16:26 | NUR ---
RECEIVED A CALL BACK FOR INSURANCE, REVIEW GIVEN TO NATHAN. STATES SINCE PT HAD A PRIOR DEMENTIA DIAGNOSIS CASE HAD TO BE PENDED TO MD. WILL CALL WITH DETERMINATION SOON SHE GETS IT.
[2019-01-02 19:31] VITALS: BP 112/70
--- NOTE | 2019-01-02 20:38 | NUR ---
COMBATIVE WITH HOC. UNABLE TO HAVE 1:1 DUE TO COGNITION. UP FOR SNACK. CURRENTLY SITTING IN DININGROOM. NONSENSICLE SPEECH
--- NOTE | 2019-01-03 06:12 | NUR ---
SLEPT WELL PAST 2000PM
[2019-01-03 07:37] VITALS: BP 114/68
--- NOTE | 2019-01-03 08:00 | NUR ---
RECEIVED A CALL FROM NATHAN THAT PT WAS APPROVED THROUGH 01/09 WITH NEXT REVIEW DATE 01/09. THEY WILL CONTACT ME. REF NUMBER IS [id number]
--- NOTE | 2019-01-03 08:30 | NUR ---
Treatment Plan meeting with Dr. Carmichael, RN, AT and Corporate Job Titles. Plan for discharge at the end of the week, beginning of next week. Pt. will return to [facility]
--- NOTE | 2019-01-03 10:07 | NUR ---
SEAMUS AHUMADA TOWER TRUCK DRIVER ON UNIT TO ASSESS PT, UPDATE PROVIDED.
--- NOTE | 2019-01-03 11:44 | NUR ---
AM GROUP PT IS UNABLE TO ATTEND OR PARTICIPATE IN GROUP THERAPY DUE TO COGNITIVE IMPAIRMENT
[2019-01-03 20:00] VITALS: BP 112/67
--- NOTE | 2019-01-03 20:34 | NUR ---
EVENING/DISCUSSION/RELAXTION PT UNABLE TO ATTEND DUE CONFUSION AND RESTING AT THIS TIME.
--- NOTE | 2019-01-04 04:20 | NUR ---
24 HR chart check completed.
--- NOTE | 2019-01-04 08:30 | NUR ---
Treatment Plan meeting held this morning with Dr. Carmichael, RN, AT, SW and Radiator Fitter. Plan for discharge next week. Pt. will return to [facility]
[2019-01-04 09:35] VITALS: BP 128/52
--- NOTE | 2019-01-04 10:18 | NUR ---
SEAMUS AHUMADA WELL SHOOTER ON UNIT TO ASSESS PT, UPDATE PROVIDED.
--- NOTE | 2019-01-04 15:17 | NUR ---
P: PT OSBERVED TO BE SPEAKING TO UNSEEN OTHERS AT TIMES, YELLING OUT "GET OUT OF HERE. PT INTRUSIVE/DISRUPTIVE TO MIELUI, YELLING OUT AND CURSING FUCK YOU, FUCK YOU, FUCK FUCK FUCK, GET OUT" PT ALSO YELLING OUT NONSENSICALLY AT TIMES. PT IRRITABLE AT TIMES, ATTEMPTING T GRAB AND SCRATCH STAFF. PT SPIT OUT PARTIAL AMOUNTS OF MEDICATIONS THIS AM. I: PROVIDE EMOTIONAL SUPPORT AND 1:1 FOR PT TO VOICE FEELINGS, ENCOURAGE MED COMPLIANCE, PROVIDE DIVERSIONAL ACTIVITIES SUCH MUSIC OR A BABY DOLL, PROVIDE LOW STIMULATION ENVIRONEMNT FOR PT TO CALM, PRESENT REALITY AND RE-ORIENT R: PT ALERT TO PERSON ONLY, CONFUSION AND SHORT TERM MEMORY DEFICITS NOTED PER PT BASELINE. ALL INTERVENTIONS INEFFECTIVE, PT CONTINUES TO BE IRRITABLE WITH STAFF, ATTEMPTING TO GRAB AND KICK. PT CONTINUES TO YELL OUT AND CURSE. UNABLE TO PRESENT REALITY, RE-ORIENT OR PROVIDE MED EDUCATION D/T COGNITION. PT UP TO A GERICHAIR AT THIS TIME D/T UNSTEADY GAIT AND LACK OF SAFETY AWARENESS. PT INCONTINENT OF BOWEL AND BLADDER, CARE PROVIDED NEEDED. P: PLAN IS TO MONITOR PT BEHAVIORS ON Q15 MIN SAFETY CHECKS, ENCOURAGE MED COMPLIANCE, PROVIDE EMOTIONAL SUPPORT AND 1:1 FOR PT TO VOICE FEELINGS, OFFER DIVERSIONAL ACTIVITIES.
--- NOTE | 2019-01-04 15:31 | NUR ---
PM GROUP/TEAR BOTTLES PT IS UNABLE AT THIS TIME TO PARTICIPATE IN GROUP THERAPY DUE TO COGNITIVE IMPAIRMENT
--- NOTE | 2019-01-04 19:47 | NUR ---
24 HR chart check completed.
[2019-01-04 19:53] VITALS: BP 126/60
--- NOTE | 2019-01-04 20:19 | NUR ---
Patient yelling out continuously,being disruptive,combative with hands on care, and grabbing at staff. Attempted to redirect patient but unsuccessful. All non-pharmacological interventions unsuccessful. Ativan po prn given for anxiety/agitation. Will monitor behavior.
--- NOTE | 2019-01-04 21:24 | NUR ---
Patient alert to self only with confusion. Patient yells out continuously with nonsensical and also vulgar words. Unable to do 1:1 due to patient's cognition. Patient compliant with medication with a lot of encouragement. Patient very combative with hands on care. Plan to continue to encourage medication compliance. Q 15 minute safety checks continued and maintained. See [facility] flowhseet for further documentation.
--- NOTE | 2019-01-05 05:36 | NUR ---
Patient slept approx. 6 hours throughout shift. Q 15 minute safety checks continued and maintained.
[2019-01-05 08:00] VITALS: BP 94/37
--- NOTE | 2019-01-05 10:30 | NUR ---
Amol Mantilla met with Nursing Staff this a.m. for Treatment plan meeting. Plan for discharge Next week. Pt. will return to [facility]
--- NOTE | 2019-01-05 11:53 | NUR ---
AM GROUP/EXERCISE PT IS UNABLE TO ATTEND OR PARTICIPATE IN GROUP THERAPY AT THIS TIME DUE TO COGNITIVE IMPAIRMENT.
--- NOTE | 2019-01-05 11:55 | NUR ---
DR. BURGOS ON FLOOR TO ASSESS PT.
--- NOTE | 2019-01-05 12:42 | NUR ---
Shift chart check completed.
--- NOTE | 2019-01-05 14:50 | NUR ---
P- ALERT TO PERSON ONLY. CONFUSION AND ST/LT MEMORY DEFICITS NOTED. MOOD LABILE. YELLING OUT, STUTTERING WORDS, CURSING. GRABBING STAFF ARMS, ATTEMPT TO STRIKE OUT AT PEERS/STAFF. RESTLESS; UTILIZING MARYWALKER, WALKING UP AND DOWN THE HALLS. I- ASSESS MOOD, ORIENATION, SI/HI, HALLUCINATIONS, DELUSIONS OR PAIN. REORIENT FREQUENTLY WHEN CONFUSION IS NOTED. PROVIDE REASSURANCE, 1:1 INTERACTION WITH EMOTIONAL SUPPORT AND VENTILATION OF FEELINGS WITH THERAPEUTIC COMMUNICATION WHEN YELLING OUT, CURSING. REDIRECT AND EDUCATE ON APPROPRAITE BEHAVIOR WHEN STRIKING OUT AT STAFF/PEERS. PROVIDE WITH MEDICATIONS ON TIME WITH EDUCATION ON EACH. ENCOURAGE TO ATTEND AND PARTICIPATE IN GROUP THERAPY FOR EMOTIONAL SUPPORT AND SOCIALIZTION. ONE TO TWO ASSIST WITH TRANSFERING AND ADLS DUE TO INCREASED CONFUSION AT THESE TIMES. PROVIDE LOW STIMULI ENVIRONMENT WHEN PT IS YELLING OUT AND CURSING AND THERES AN INCREASE IN STIMULI. R- REMAINS AT BASELINE CONFUSION EVEN WITH REORIENTATION PROVIDED. MOOD LABILE. UNABLE TO ANSWER INTERVIEW QUESTIONS APPROPRIATELY DUE TO COGNITION. NO S/S OF INTERACTING WITH INERNAL STIMULI. NO DELUSIONAL THOUGHT PROCESS NOTED. NO S/S OF DISTRESS NOTED. PT UTILIZING MARYWALKER DUE TO UNSTEADY GAIT. REMAINS RESTLESS, WALKING UP AND DOWN THE HALLS. PT YELLING OUT "SHUT UP" "FUCK OFF" "FUCK YOU", PT SEEMS TO BE YELLING OUT AND CURSING WHEN THERE IS AN INCREASE IN STIMULI. LOW STIMULI ENVIRONMENT EFFECTIVE. REDIRECTION EFFECTIVE WHEN ATTEMPTING TO STRIKE OUT AND GRABBING STAFF/PEERS. PT ATTEMPT TO SWING AT PEERS, NOT TOUCHING THEM, HOWEVER ATTEMPTED. REDIRECTION AND EDUCATION ON APPROPRIATE BEHAVIOR EFFECTIVE. PT RECEPTIVE TO 1:1 INTEARCTION AND THERAPEUTIC COMMUNICATION. INCONTINENT OF URINE. ONE TO TWO ASSIST PROVIDED DURING ADLS DUE TO INCREASED CONFUSION AT THIS TIME. EATING AND DRINKING ADEQUATELY. MEDICATION COMPLIANT. REFUSING TO ATTEND/PARTICIPATE IN GROUP THERAPIES. P- REORIENT FREQUENTLY WHEN CONFUSION IS NOTED. REDIRECT AND EDUCATE ON APPROPRIATE BEHAVIOR WHEN GRABBING AND ATTEMPT TO STRIKE OUT AT STAFF/PEERS. PROVIDE 1:1 INTERACTION WITH EMOTIONAL SUPPORT AND THERAPEUTIC INTERACTION, PT VERY RECEPTIVE TO THESE INTERVENTIONS. ONE TO TWO ASSIST WITH ADLS DUE TO UNSTEADY GAIT AND INCREASED CONFUSION DURING THESE TIMES. PROVIDE MEDICATIONS ON TIME WITH EDUCATION ON EACH. ENCOURAGE TO ATTEND/PARTICIPATE IN GROUP THEARPIES. ASSESS MOOD, ORIENTATION, SI/HI, HALLUCINATIONS, DELUSIONS OR PAIN EVERY SHIFT. FALLING STAR PROGRAM IN PLACE. Q15 MINUTE CHECKS MAINTAINED FOR SAFETY.
--- NOTE | 2019-01-05 15:30 | NUR ---
PM GROUP/PAINTING AND CARDS PT IS UNABLE TO ATTEND OR PARTICIPATE IN GROUP THERAPY AT THIS TIME DUE TO COGNITIVE IMPAIRMENT
[2019-01-05 20:00] VITALS: BP 132/60
--- NOTE | 2019-01-05 21:26 | NUR ---
Patient grabbing other patients and staff,attempting to hit and pinch them,yelling obscenities constantly. Unable to redirect patient. All non-pharmacological interventions unsuccessful at this time. Medicated with Geodon IM prn for increased anxiety/agitation due to patient being non-compliant with oral medication by spitting out. Will monitor behavior.
--- NOTE | 2019-01-05 22:12 | NUR ---
Patient alert to self only with confusion. Patient yells out continuously with nonsensical and also vulgar words. Unable to do 1:1 due to patient's cognition. Patient NON-compliant with HS medication. Patient very combative with hands on care. Plan to continue to encourage medication compliance. Q 15 minute safety checks continued and maintained. See [facility] flowhseet for further documentation.
--- NOTE | 2019-01-06 00:16 | NUR ---
24 HR chart check completed.
--- NOTE | 2019-01-06 06:11 | NUR ---
Patient slept approx. 7 hours throughout shift. Q 15 minute safety checks continued and maintained.
--- NOTE | 2019-01-06 07:45 | NUR ---
PATIENT SITTING IN QUIET ROOM WITH STAFF, EATING BREAKFAST WITH PROMPTING AND ASSITANCE PROVIDED. NO S/S OF DISTRESS NOTED. RESPS EVEN AND UNLABORED ON ROOM AIR.
[2019-01-06 08:00] VITALS: BP 130/64
--- NOTE | 2019-01-06 08:30 | NUR ---
Treatment Plan meeting with Dr. Carmichael, RN, AT, SW and Nursing Assistant. Plan for discharge Next week. Pt. will return to [facility].
--- NOTE | 2019-01-06 09:33 | NUR ---
Left Voice Mail for Lauren Estevez LPN Admissions at [facility] to notify of plans to discharge next week. Clinical Updates faxed to facillity Attn: Lauren [phone].
--- NOTE | 2019-01-06 11:34 | NUR ---
AM GROUP/LEISURE INTERESTS PT WAS AMBULATING VIA THE [employer] Alg[employer] WALKER AND WAS ENTERING THE GROUP ROOM AND "RAMING" INTO PEERS AND TRYING TO GRAB AT THEM. PT WAS REMOVED FROM THE GROUP ROOM. PT IS UNABLE TO PARTICIPATE AT THIS TIME DUE TO COGNITIVE IMPAIRMENT AND A DANGER TO OTHERS.
--- NOTE | 2019-01-06 13:22 | NUR ---
Pt ambulating in merry walker down unit parra this AM. Pt was also walking with behavioral health worker at times. Pt rarely yells out when staff is beside her and engaged with her.
--- NOTE | 2019-01-06 13:31 | NUR ---
P- ALERT TO PERSON ONLY; CONFUSION AND ST/LT MEMORY DEFICITS NOTED. MOOD LABILE. YELLING OUT, CURSING, STRIKING OUT AT OTHERS, RUNNING AT OTHERS, GRABBING OTHERS, STUTTERING. NONSENSICAL RESPONSES. UTILIZE JASWINDER WALKER. REFUSING MEDICATIONS. RESTLESS AND PACING. I- ASSESS MOOD, ORIENTATION, SI/HI, HALLUCINATIONS, DELUSIONS OR PAIN. PROVIDE WITH MEDICATIONS ON TIME WITH EDUCATION ON EACH. ENCOURAGE MEDICATION COMPLIANCE. EDUCATE ON THE IMPORTANCE OF TAKING MEDICATIONS FOR PT'S INDIVIDUAL CASE. 1:1 THERAPEUTIC INTERACTION WITH EMOTIONAL SUPPORT AND VENTILATION OF FEELINGS PROVIDED. REDIRECT PATIENT AND REASSURE THAT EVERYONE ON THE UNIT IS TRYING TO HELP HER. OFFER FOOD AND FLUIDS FREQUENTLY. ONE ASSIST WITH ADLS AND CARE DUE TO INCREASED CONFUSION AT THESE TIMES. PROMPTING AND ASSISTANCE PROVIDED WITH FOOD AND FLUIDS DUE TO INCREASED CONFUSION. ENCOURAGE TO ATTEND/PARTICIPATE IN GROUP THERAPIES FOR EMOTIONAL SUPPORT AND SOCIALIZATION. PROVIDE LOW STIMULI ENVIRONEMTN, ACTIVITIES, AND COPING/RELAXATION TECHNIQUES. WALK WITH PATIENT FREQUENTLY. R- PATIENT REMAINS AT BASELINE CONFUSION EVEN WITH REORIENTATION PROVIDED. PATIENT REQUIRES PROMPTING AND ASSITANCES WITH NUTRITION, ADLS, AND CARE DUE TO INCREASED CONFUSION. 1:1 INTERACTION EFFECTIVE INTERMITTENTLY. CONSTANT REASSURANCE AND REDIRECTION EFFECTIVE FOR PATIENT. PATIENT STANDING DOWN THE LAFLEUR UTILIZING JASWINDERTradeoKER, CAME RUNNING DOWN THE LAFLEUR AT ANOTHER PEER WITH ARM OUT ATTEMPTING TO GRAB PEER. PT HAD TO BE TAKEN OUT OF GROUP DUE TO GOING AFTER OTHER PEERS AND ATTEMPTING TO HIT. PT REFUSED MORNING MEDICATIONS AND WAS COMPLIANT DURING LUNCH TIME TO TAKE MEDICATIONS, MUCH REAPPROACH AND EDUCATION NEEDED. PATIENT REFUSES TO UTILIZE LOW STIMULI ENVIRONEMNT, COPING/RELAXATION TECHNIQUES. PT REMAINS RESTLESS, PACING. WALKING WITH STAFF FREQUENTLY. PT WANTING TO HOLD STAFFS HANDS, WANTING CONSTANT 1:1 INTERACTION. PT REMAINS LABILE AND YELLING OUT. YELLING OUT "FUCK YOU. FUCK OFF" "SHUT THE FUCK UP". "YOU ALL ARE FUCKING STUPID". "GET THE HELL OUT OF HERE". PT GRINDING HER TEETH AND STUTTERING HER WORDS. REDIRECTION EFFECTIVE WHEN YELLING OUT AND GOING AFTER OTHER PEOPLE. EATING AND DRINKING ADEQUATELY WITH PROMPTING AND ASSISTANCE. NONSENSICAL RESPONSES TO INTERVIEW QUESTIONS. NO S/S OF INTERACTING WITH INTERNAL STIMULI. NO DELUSIONAL THOUGHT PROCESS NOTED. NO S/S OF DISTRESS NOTED. RESPS EVEN AND UNLABORED ON ROOM AIR. P- ASSESS MOOD, ORIENTATION, SI/HI, HALLUCINATIONS, DELUSIONS OR PAIN EVERY SHIFT. 1:1 THERAPEUTIC INTERACTION WITH EMOTIONAL SUPPORT AND VENTILATION OF FEELINGS. REASSURANCE, REDIRECTION PROVIDED FREQUENTLY. REDIRECT WITH AGGRESSIVE BEHAVIOR. WALK FREQUENTLY. PROVIDE WITH FOOD AND FLUIDS FREQUENTLY. PROVIDE WITH MEDICATIONS ON TIME AND EDUCATION ON EACH. ENCOURAGE MEDICATION COMPLIANCE. REAPPROACH FREQUENTLY. FALLING STAR PROGRAM IN PLACE. Q15 MINUTE CHECKS MAINTAINED FOR SAFETY.
--- NOTE | 2019-01-06 13:31 | NUR ---
Shift chart check completed.
[2019-01-06 19:22] VITALS: BP 128/68
--- NOTE | 2019-01-06 22:45 | NUR ---
Patient alert to self only with confusion. Patient yells out frequently with nonsensical and also vulgar words. Unable to do 1:1 due to patient's cognition. Patient NON-compliant with HS medication. Patient very combative with hands on care. Plan to continue to encourage medication compliance. Q 15 minute safety checks continued and maintained. See [facility] flowhseet for further documentation.
--- NOTE | 2019-01-07 00:24 | NUR ---
24 HR chart check completed.
--- NOTE | 2019-01-07 06:39 | NUR ---
Patient slept approx. 5 1/2 hours throughout shift. Q 15 minute safety checks continued and maintained.
[2019-01-07 08:23] VITALS: BP 124/68
--- NOTE | 2019-01-07 09:17 | NUR ---
PT YELLING OUT, CURSING, INCREASINGLY ANXIOUS AND RESTLESS. STAFF PROVIDED EMOTIONAL SUPPORT AND 1:1 FOR PT TO VOICE FEELINGS, PLACED PT IN MERRYWALKER TO AMBULATE THROUGOHUT UNIT, OFFERED FOOD/FLUIDS, TOILETED. ALL INTERVENTIONS INEFFECTIVE, JOE BRONSON HOSIERY PAIRER ON UNIT TO ASSESS PT, UPDATE PROVIDED. GEODON PRN IM GIVEN PER ORDERS. WILL CONTINUE TO MONITOR.
--- NOTE | 2019-01-07 10:40 | NUR ---
DR. AGUILAR AND DR. VIVAR ON UNIT TO ASSESS PT, UPDATE PROVIDED.
--- NOTE | 2019-01-07 11:02 | NUR ---
MARIS SLIGHTLY EFFECTIVE AT THIS TIME, PT VALDEZ, CONTINUES TO SPEAK OUT.
--- NOTE | 2019-01-07 11:41 | NUR ---
AM/EXERCISE/REMINISCE/ART PT UNABLE TO ATTEND/PARTICIPATE DUE LEVELS OF COGNITION AND CONFUSION. PT WANDERING IN JASWINDER COREAS.
--- NOTE | 2019-01-07 15:49 | NUR ---
PM/GAMES/MUSIC PT UNABLE TO ATTEND GROUP DUE TO LEVELS OF COGNITION/CONFUSION. PT CONTINUES TO WANDER HALLS IN JASWINDER COREAS.
[2019-01-07 19:39] VITALS: BP 111/67
--- NOTE | 2019-01-08 00:23 | NUR ---
24 HR chart check completed.
--- NOTE | 2019-01-08 00:30 | NUR ---
P-CONFUSION, RESTLESS, YELLING OUT I-PROVIDE SIMPLE STATEMENTS TO PT WHEN SPEAKING TO HER. REDIRECT, MONITOR BEHAVIORS. ADMINISTER MEDS, MONITOR SLEEP R-PT ALERT TO SELF ONLY. HAS YELLED OUT. WHEN ASSISTED WITH ADLS GRABS OUT AT STAFF. ATTEMPTED TO GIVE HER MEDICINE CRUSHED & MIXED IN APPLESAUCE & SHE SPIT IT OUT P-CONTINUE TO MONITOR. PROVIDE PHYSICAL ASSISTANCE & EMOTIONAL SUPPOLRT NEEDED.
--- NOTE | 2019-01-08 05:20 | NUR ---
PT HAS SLEPT PAST 2300
[2019-01-08 08:03] VITALS: BP 121/65
--- NOTE | 2019-01-08 10:58 | NUR ---
DR. AGUILAR ON UNIT TO ASSESS PT, UPDATE PROVIDED.
--- NOTE | 2019-01-08 12:02 | NUR ---
AM/BRAINGAMES/MUSIC PT UNABLE TO ATTEND DUE TO YELLING OUT "FUCK YOU" AND "GET OUTTA HERE" PT REMOVED FROM ACTIVITY ROOM TO NOT RETURN.
--- NOTE | 2019-01-08 14:12 | NUR ---
P: PT INTRUSIVE/DISRUPTIVE TO UNIT, YELLING OUT AND CURSING. PT IRRITABLE WITH STAFF, REACHING OUT AND GRABBING. PT OBSERVED TO BE RESPONDING TO UNSEEN OTHERS YELLING "GET OUT GET OUT I TOLD YA". PT RESISITIVE WITH AM MEDS. I: PROVIDE EMOTIONAL SUPPORT AND 1:1 FOR PT TO VOICE FEELINGS, ENCOURAGE MED COMPLIANCE, RE-ORIENT, PROVIDE LOW STIMULATION ENVIRONMENT FOR PT TO CALM, OFFER DIVERSIONAL ACTIVITITES SUCH BABY DOLL AND MUSIC R: PT ALERT TO PERSON ONLY, CONFUSION AND SHORT TERM MEMORY DEFICITS NOTED PER PT BASELINE. ALL INTERVENTIONS INEFFECTIVE, PT BEHAVIORS CONTINUE. PT UP TO GERICHAIR D/T INABILITY TO AMBULATE INDEPENDENTLY. PT INCONTINENT OF BOWEL AND BLADDER, CARE PROVIDED NEEDED. P: MONITOR PT BEHAVIORS ON Q15 MIN SAFETY CHECKS, ENCORAGE MED COMPLIANCE, PROVIDE RE-ORIENTATION AND PRESENT REALITY, PROVIDE LOW STIMULATION ENVIRONMENT FOR PT TO CALM
[2019-01-08 19:24] VITALS: BP 141/60
--- NOTE | 2019-01-08 21:50 | NUR ---
24 HR chart check completed.
--- NOTE | 2019-01-08 23:12 | NUR ---
P-CONFUSION, RESTLESS, YELLING OUT I-PROVIDE SIMPLE STATEMENTS TO PT WHEN SPEAKING TO HER. REDIRECT, MONITOR BEHAVIORS. ADMINISTER MEDS, MONITOR SLEEP R-PT ALERT TO SELF ONLY. HAS YELLED OUT FREQUENTLY "FUCK YOU" WHEN ASSISTED WITH ADLS GRABS OUT AT STAFF. MEDICATIONS CRUSHED & MIXED IN APPLESAUCE. P-CONTINUE TO MONITOR. PROVIDE PHYSICAL ASSISTANCE & EMOTIONAL SUPPOLRT NEEDED.
--- NOTE | 2019-01-09 05:59 | NUR ---
PT HAS SLEPT QUIETLY PAST 0015
[2019-01-09 07:55] VITALS: BP 98/61
--- NOTE | 2019-01-09 11:31 | NUR ---
AM GROUP PT WAS PRESENT FOR MORNING GROUP THERAPY BUT IS UNABLE TO PARTICIPATE DUE TO COGNITIVE IMPAIRMENT.
--- NOTE | 2019-01-09 13:46 | NUR ---
Shift chart check completed.
--- NOTE | 2019-01-09 14:23 | NUR ---
P- ALERT TO PERSON ONLY; CONFUSION AND ST/LT MEMORY DEFICITS NOTED. MOOD LABILE. YELLING OUT AT TIMES. RESTLESS AT TIMES. I- ASSESS MOOD, ORIENTATION, SI/HI, HALLUCINATIONS, DELUSIONS OR PAIN. REORIENT FREQUENTLY WHEN CONFUSION IS NOTED. PROVIDE WITH MEDICATIONS ON TIME WITH EDUCATION ON EACH. 1:1 THERAPEUTIC INTERACTION WITH EMOTIONAL SUPPORT PROVIDED. PROVIDE LOW STIMULI ENVIRONMENT. PROVIDE WITH COPING/RELAXATION TECHNIQUES. PLAY MUSIC. ONE TO TWO ASSIST WITH TRANSFERING, ADLS, CARE, AND NUTIRITION DUE TO UNSTEADY GAIT AND COGNITION. REDIRECT WHEN CURSING. R- REMAINS AT BASELINE CONFUSION EVEN WITH REORIENTATION PROVIDED. UNABLE TO ASSESS SI/HI, HALLUCINATIONS, OR PAIN DUE TO COGNITION. NONSENSICAL RESPONSES, RESPONDS APPRORPITALY AT TIMES. NO S/S OF INTERACTING WITH INTERNAL STIMULI. NO S/S OF DELUSIONAL THOUGHT PROCESS NOTED. NO S/S OF DISTRESS NOTED. RESPS EVEN AND UNLABORED ON ROOM AIR. PT NAPPING INTERMITTENTLY THROUGHOUT THE DAY. EATING AND DRINKING ADEQUATELY. STEP BY STEP INSTRUCTION PROVIDED DUE TO COGNITION. PT INCONTINENT OF URINE, ONE TO TWO ASSIST PROVIDED DUE TO INCREASED CONFUSION DURING THESE TIMES, COGNITION, AND UNSTEADY. PT INTERMITTENTLY WILL YELL OUT "FUCK YOU" OR OTHR CURSE WORDS. REDIRECTION EFFECTIVE. GAIT UNSTEADY WHILE AMBULATING AT TIMES, UTLIZING MARYWALKER TO GET AROUND. PATIENT ENJOYS LISTENING TO MUSIC, PT RELAXES. 1:1 THERAPEUTIC INTERACTION EFFECTIVE. MEDICATION COMPLIANT. P- REORIENT FREQUENTLY WHEN CONFUSION IS NOTED. ASSESS MOOD, ORIENTATION, SI/HI, HALLUCINATIONS, DELUSIONS OR PAIN EVERY SHIFT. PROVIDE WITH MEDICATIONS ON TIME WITH EDUCATION ON EACH. 1:1 THERAPEUTIC INTERACTION WITH EMOTIONAL SUPPORT AND VENTILATION OF FEELINGS. PROVIDE LOW STIMULI ENVIRONMENT. PROVIDE WITH COPING/RELAXATION TECHNIQUES SUCH LISTENING TO MUSIC. PROVIDE WITH MARYWALKER WHEN RESTLESS. ONE TO TWO ASSIST WITH ADLS, CARE, TRANSFERING, NUTRITION DUE TO INCREASED CONFUSION/COGNITION/UNSTEADY GAIT. FALLING STAR PROGRAM IN PLACE. Q15 MINUTE CHECKS MAINTAINED FOR SAFETY.
--- NOTE | 2019-01-09 15:27 | NUR ---
CONTINUED REVIEW CALL AND LEFT ON VOICEMAIL FOR CURTIS AT [phone].
--- NOTE | 2019-01-09 15:38 | NUR ---
PM GROUP PT IS UNABLE TO ATTEND OR PARTICIPATE IN GROUP THERAPY AT THIS TIME DUE TO COGNITIVE IMPAIRMENT
[2019-01-09 19:24] VITALS: BP 114/70
--- NOTE | 2019-01-09 20:01 | NUR ---
24 HR chart check completed.
--- NOTE | 2019-01-09 20:29 | NUR ---
EVENING/LEISURE SKILLS PT IN BED RESTING AT THIS TIME. DUE TO LEVELS OF COGNITION/CONFUSION PT UNABLE TO PARTICIPATE.
--- NOTE | 2019-01-09 21:50 | NUR ---
PT WAS ASSISTED TO BED AT THE BEGINNING OF THE SHIFT AT 1930. WAS INCONTINENT OF URINE. REMAINS CONFUSED. PT HAS SLEPT QUIETLY IN BED.
--- NOTE | 2019-01-10 05:45 | NUR ---
PT HAS SLEPT PAST 2029
[2019-01-10 07:36] VITALS: BP 114/88
--- NOTE | 2019-01-10 08:00 | NUR ---
Treatment Plan meeting with Dr. Carmichael, RN, AT, and [employer]. Plan for discharge Wednesday. Pt. will return to [facility]
--- NOTE | 2019-01-10 10:37 | NUR ---
Left Voice Mail for Lauren Estevez Admissions at [facility] to notify of plans to discharge [facility].
--- NOTE | 2019-01-10 11:31 | NUR ---
AM GROUP PT IS UNABLE TO ATTEND OR PARTICIPATE IN GROUP THERAPY AT THIS TIME DUE TO COGNITIVE IMPAIRMENT.
[2019-01-10 18:19] LABS: BILIRUBIN NEGATIVE (NEGATIVE); BLOOD NEGATIVE (NEGATIVE); CLARITY SL CLOUDY (CLEAR); COLOR YELLOW (YELLOW); GLUCOSE NEGATIVE (NEGATIVE); KETONE TRACE (NEGATIVE); LEUKO ESTERASE NEGATIVE (NEGATIVE); NITRITE NEGATIVE (NEGATIVE); SPECIFIC GRAVITY 1.025 (1.005-1.030)
[2019-01-10 18:30] LABS: MUCOUS 3+
--- NOTE | 2019-01-10 18:45 | NUR ---
PT INTERMITTENTLY YELLING TODAY. 1:1, REDIRECTION, RELAXATION MUSIC, LOW STIMULATION PT CALMS WITH 1:1, CALMS WITH REDIRECTION. RESPONDS WELL TO GOSPEL MUSIC. PT UA OBTAINED TODAY VIA STRAIGHT CATH. PT TOLERATED WELL. WILL CONTINUE TO REDIRECT PT APPROPRIATE. WILL CONTINUE TO OFFER DIVERSIONAL INTERVENTIONS. Q 15 MIN MONITORING PER POLICY
[2019-01-10 19:42] VITALS: BP 108/67
--- NOTE | 2019-01-10 19:45 | NUR ---
24 HR chart check completed.
--- NOTE | 2019-01-10 21:48 | NUR ---
P-CONFUSION, RESTLESS, YELLING OUT I-PROVIDE SIMPLE STATEMENTS TO PT WHEN SPEAKING TO HER. REDIRECT, MONITOR BEHAVIORS. ADMINISTER MEDS, MONITOR SLEEP R-PT ALERT TO SELF ONLY. HAS YELLED OUT INTERMITTENTLY, "FUCK YOU". HAS MOVED ABOUT THE UNIT VIA [employer] WALKER. GRABS OUT AT STAFF. WITH HANDS ON CARE. MEDICATIONS CRUSHED & MIXED IN APPLESAUCE. P-CONTINUE TO MONITOR. PROVIDE PHYSICAL ASSISTANCE & EMOTIONAL SUPPOLRT NEEDED.
--- NOTE | 2019-01-11 06:08 | NUR ---
PT HAS SLEPT PAST 2199
[2019-01-11 07:37] VITALS: BP 125/70
--- NOTE | 2019-01-11 08:00 | NUR ---
Treatment Plan meeting with Dr. Carmichael, RN, AT, SW and operations agent. Plan for discharge today. Pt. to return to [facility].
--- NOTE | 2019-01-11 08:15 | NUR ---
IP APPROVED 3 ADDITIONAL DAYS. NRD 01/12 PER CUR[facility] FROM [employer].
[2019-01-11] MEDS ORDERED: CLONAZEPAM0.5 M2 PO (08:34)
[2019-01-11] MEDS ORDERED: FANAPT12 MG PO (08:34)
[2019-01-11] MEDS ORDERED: EXELON13.3 MG/21 T (08:34)
[2019-01-11] MEDS ORDERED: MEMANTINE HCL10 MG PO (08:34)
--- NOTE | 2019-01-11 08:36 | NUR ---
DR. ANTONIO MADE AWARE OF PT NO BM SINCE 01/05. AWARE THAT MOM WAS GIVEN YESTERDAY PER PRN ORDER. STATES TO GIVE MOM AGAIN.
--- NOTE | 2019-01-11 09:00 | NUR ---
Spoke with Pt. Mika this a.m. Notified of plans to discharge today. Transportation arranged with [facility] to transport with case picker time 12:00 p.m.
--- NOTE | 2019-01-11 09:08 | NUR ---
Spoke with Lauren Estevez LPN Yarn Examiner at [place]. Notified of Discharge today and Clinical Courier time.
--- NOTE | 2019-01-11 09:45 | NUR ---
NURSE TO NURSE REPORT GIVEN TO "RJ", ADMISSION NURSE, AT [facility]. STATES SHE WILL CALL BACK WITH ANY FURTHER QUESTIONS
--- NOTE | 2019-01-11 11:09 | NUR ---
PT HAD MEDIUM SIZED, HARD BOWEL MOVEMENT. UPDATE GIVEN TO RJ AT [facility]
--- NOTE | 2019-01-11 11:15 | NUR ---
Discharge Paperwork faxed to [facility].
--- NOTE | 2019-01-11 11:41 | NUR ---
AM GROUP/LEISURE INTERESTS PT IS UNABLE TO ATTEND OR PARTICIPATE IN GROUP THERAPY AT THIS TIME DUE TO COGNITIVE IMPAIRMENT.
--- NOTE | 2019-01-11 12:06 | NUR ---
AURY ON UNIT AT THIS TIME, 2 ATTENDANTS AND SECURITY. ALL BELONGINGS AND DISCHARGE PAPERWORK SENT WITH PT AT THIS TIME.
--- NOTE | 2019-01-11 14:14 | NUR ---
Patient discharged today to [facility]. Follow-up will be with Dr Carmichael, visiting psychiatrist. While at [facility], pt's behviors improved. Pt's verbal outbursts lessened. Pt was able to enjoy gospel music and remain calm. Due to pt's cognitive deficits, pt had difficulty particiapting in group activities.
== END 2019-01-11 12:02 | DRG 883 ==
LOC: 3N 12:53
PROVIDERS: ADMIT Psychiatry & Neurology Psychiatry
DX: F63.81 Intermittent explosive disorder (principal); F02.81 Dementia in other diseases classified elsewhere, unspecified severity, with behavioral disturbance; I34.1 Nonrheumatic mitral (valve) prolapse; K58.9 Irritable bowel syndrome, unspecified; I10 Essential (primary) hypertension; K21.9 Gastro-esophageal reflux disease without esophagitis; E78.5 Hyperlipidemia, unspecified; F43.10 Post-traumatic stress disorder, unspecified; E55.9 Vitamin D deficiency, unspecified; G30.9 Alzheimer's disease, unspecified; F41.1 Generalized anxiety disorder; Z81.1 Family history of alcohol abuse and dependence; Z83.79 Family history of other diseases of the digestive system; Z88.1 Allergy status to other antibiotic agents; Z79.899 Other long term (current) drug therapy; Z86.73 Personal history of transient ischemic attack (TIA), and cerebral infarction without residual deficits